=== PATIENT | female | born 1980 | race Caucasian/White ===

== ENCOUNTER 2019-10-02 16:22 | Emergency (ER) | payer OTHER ==
[~2019-10-02] VITALS: Ht 160 cm; Wt 46.7 kg
--- NOTE | 2019-10-02 16:30 | NUR ---
DR RIVERA AT BEDSIDE
--- NOTE | 2019-10-02 16:30 | NUR ---
BIBPD FOR OTB. PT HAS NO MEDICAL COMPLAINTS DAIRY BACTERIOLOGIST. HX OF DIABETES, TO ER BED 9, HOOKED TO MONITOR, WARM BLANKET PROVIDED, PATIENT AAO x 4, BREATHING EVEN AND UNLABORED. AWAITING MD GOMEZ.
[2019-10-02] MEDS ORDERED: INSULIN REGULAR, HUMAN 100 UNIT/ML 10 ML VIAL ONE (16:51)
[2019-10-02 16:57] LABS: APPEARANCE,URINE Clear (CLEAR); BILIRUBIN,URINE Negative (NEGATIVE); BLOOD, URINE Trace-lysed Ery/uL (NEGATIVE); COLOR,URINE Yellow (YELLOW); KETONES,URINE 40 (NEGATIVE); LEUKOCYTE ESTERASE ,URINE Negative (NEGATIVE); NITRITE, URINE Negative (NEGATIVE); PROTEIN,URINE Negative (NEGATIVE); UGLUCOSE >=1000 mg/dL (NEGATIVE)
[2019-10-02 17:01] LABS: BASOPHILS % (AUTO) 0.4 % (0.0-2.0); EOSINOPHILS % (AUTO) 1.9 % (0.0-6.0); HEMATOCRIT 44 % (33-45); HEMOGLOBIN 14.8 g/dL (11.5-14.8); LYMPHOCYTES # (AUTO) 1.8 /CMM (0.8-4.8); LYMPHOCYTES % (AUTO) 28.9 % (20.0-44.0); MEAN CORPUSCULAR HGB CONC 34 g/dl (31.0-36.0); MEAN CORPUSCULAR VOLUME 104 fL (82-100); MONOCYTES # (AUTO) 0.8 /CMM (0.1-1.30); NEUTROPHILS # (AUTO) 3.6 /CMM (1.8-8.9); NEUTROPHILS % (AUTO) 56.8 % (43.0-81.0); PLATELET COUNT (AUTO) 262 /CMM (150-450); RED BLOOD CELL COUNT(AUTO) 4.25 MIL/uL (4.0-5.2); WHITE BLOOD COUNT (AUTO) 6.4 K/uL (4.3-11.0)
[2019-10-02] MEDS: IV NS 0.9% 1,000 ML IV ONE (17:02)
[2019-10-02] MEDS: INSULIN REGULAR, HUMAN 100 UNIT/ML 10 ML VIAL SQ ONE (17:03)
[2019-10-02 17:06] LABS: BACTERIA,URINE Few /HPF (None Seen); SQUAMOUS EPITHELIAL CELL,UR Few /HPF (None Seen); WBC,URINE NONE SEEN /HPF (0-3)
[2019-10-02 17:12] LABS: CALCIUM, SERUM 8.9 mg/dL (8.5-10.1); CARBON DIOXIDE 28 mmol/L (21-32); CHLORIDE 95 mmol/L (98-107); CREATININE 0.6 mg/dL (0.6-1.3); POTASSIUM 3.9 mmol/L (3.5-5.1); SODIUM SERUM 131 mmol/L (136-145); UREA NITROGEN, BLOOD 13 mg/dL (7-18)
[2019-10-02 17:13] LABS: GLUCOSE 371 mg/dL (74-106)
--- NOTE | 2019-10-02 18:42 | NUR ---
CHAPERONED DR RIVERA FOR CHECKING PATIENT'S VAGINAL DISCHARGE
[2019-10-02] MEDS ORDERED: CEFTRIAXONE 500 MG VIAL ONE (18:49)
[2019-10-02] MEDS ORDERED: LIDOCAINE /MPF 1% VIAL 5 ML VIAL ONE (18:50)
[2019-10-02] MEDS ORDERED: AZITHROMYCIN 250 MG TABLET ONE (18:50)
[2019-10-02] MEDS ORDERED: FLUCONAZOLE (100 MG) 100 MG TABLET ONE (18:50)
[2019-10-02] MEDS: FLUCONAZOLE (100 MG) 100 MG TABLET PO ONE (19:00)
[2019-10-02] MEDS: CEFTRIAXONE 500 MG VIAL IM ONE (19:00)
[2019-10-02] MEDS: AZITHROMYCIN 250 MG TABLET PO ONE (19:00)
--- NOTE | 2019-10-02 19:27 | NUR ---
REPORT GIVEN TO LULY ENRIQUEZ FOR MINA
--- NOTE | 2019-10-02 19:30 | NUR ---
Patient discharged to PD in stable condition. Written and verbal after care instructions given. Patient verbalizes understanding of instruction.IV removed. Catheter intact and site benign. Pressure and 4x4 applied to site. No bleeding noted.
[2019-10-02 19:32] VITALS: BP 124/84
== END 2019-10-02 19:32 | disposition home or self-care (01) ==
LOC: ER 16:25
DX: E11.65 Type 2 diabetes mellitus with hyperglycemia (principal); B37.3 Candidiasis of vulva and vagina; Z72.51 High risk heterosexual behavior; Z02.89 Encounter for other administrative examinations; Z79.4 Long term (current) use of insulin
CPT/HCPCS: 36415; 80048; 81001; 82010; 82962 ×2; 85025; 87491; 87591; 96360; 96372 ×2; 99284; J0696; J1815; J3490; J7030; 81000-TC

== ENCOUNTER 2020-06-06 12:13 | Emergency (ER) | payer OTHER ==
[~2020-06-06] VITALS: Ht 154.9 cm; Wt 54.9 kg
[2020-06-06] MEDS ORDERED: LORAZEPAM INJ 2 MG/ML VIAL ONE (12:27)
[2020-06-06] MEDS ORDERED: IV NS 0.9% 1,000 ML BAG IV ONE (12:30)
[2020-06-06] MEDS ORDERED: LORAZEPAM INJ 2 MG/ML VIAL IV ONE (12:30)
[2020-06-06 12:41] LABS: BASOPHILS # (AUTO) 0.1 /CMM (0.0-0.2); EOSINOPHILS % (AUTO) 0.4 % (0.0-6.0); HEMATOCRIT 42 % (33-45); HEMOGLOBIN 13.8 g/dL (11.5-14.8); LYMPHOCYTES # (AUTO) 2.2 /CMM (0.8-4.8); LYMPHOCYTES % (AUTO) 41.2 % (20.0-44.0); MEAN CORPUSCULAR HGB CONC 33 g/dl (31.0-36.0); MEAN CORPUSCULAR VOLUME 102 fL (82-100); MONOCYTES # (AUTO) 0.1 /CMM (0.1-1.30); MONOCYTES % (AUTO) 2.2 % (2.0-12.0); NEUTROPHILS # (AUTO) 2.9 /CMM (1.8-8.9); NEUTROPHILS % (AUTO) 55.2 % (43.0-81.0); PLATELET COUNT (AUTO) 259 /CMM (150-450); RED BLOOD CELL COUNT(AUTO) 4.16 MIL/uL (4.0-5.2); WHITE BLOOD COUNT (AUTO) 5.3 K/uL (4.3-11.0)
--- NOTE | 2020-06-06 12:41 | NUR ---
ANA FROM HOME TO ER BED 12. AWAKE, ALERT BUT INTOXICATED - SMELLS OF ALCOHOL. NOT IN RESP DISTRESS, BRETHNG EVEN AND UNLABORED. BROUGHT IN FOR ALCOHOL WITHDRAWAL. PER PT SHE HAS BEEN HAVING BAD WITHDRAWAL AND HAD TO HAVE SHOT TO HELP WITH THE SHAKE. PT IS NOTED TACHYCARDIC. MD WAS AT THE BEDSIDE FOR EVAL. ORDERS RECEIVED, NOTED AND CARRIED OUT. IV LINE ESTABLISHED ON L AC 20G, BLOOD DRAWN AND GIVEN TO END USER CONSULTANT AT BEDSIDE. PT IS ON MONITOR.DENIES SI NOR HI
[2020-06-06 12:47] LABS: CALCIUM, SERUM 8.4 mg/dL (8.5-10.1); CREATININE 0.6 mg/dL (0.6-1.3); POTASSIUM 3.8 mmol/L (3.5-5.1)
[2020-06-06 12:53] LABS: ALBUMIN 4.5 g/dL (3.4-5.0); BILIRUBIN,DIRECT 0.2 mg/dL (0.0-0.2); BILIRUBIN,TOTAL 0.5 mg/dL (0.2-1.0); TOTAL PROTEIN, SERUM 8.9 g/dL (6.4-8.2)
--- NOTE | 2020-06-06 14:16 | NUR ---
CALLED SHRUTHI MCDERMOTT, PT PARTNER, SEVERAL TIMES FOR REDUCER BUT PHONE IS BUSY AND NO VOICEMAIL.
[2020-06-06] MEDS ORDERED: MAG HYDROX/AL HYDROX/SIMETH 30 ML UDC PO ONE (14:30)
[2020-06-06] MEDS ORDERED: MAG HYDROX/AL HYDROX/SIMETH 30 ML UDC ONE (14:40)
--- NOTE | 2020-06-06 14:42 | NUR ---
PT WILL BE PICKED UP BY HER NIECEFREDERICK.
--- NOTE | 2020-06-06 15:45 | NUR ---
PT PICKED UP BY HER NIECE, KRISTY. PT AMBULAUTED ON STEADY GAIT TO THE CAR
[2020-06-06 15:51] VITALS: BP 112/69
--- NOTE | 2020-06-06 15:51 | NUR ---
Patient discharged to home in stable condition. Written and verbal after care instructions given. Patient verbalizes understanding of instruction.IV removed. Catheter intact and site benign. Pressure and 4x4 applied to site. No bleeding noted. Pt ambulatory with a steady gait
== END 2020-06-06 15:52 | disposition home or self-care (01) ==
LOC: ER 12:18
DX: F10.129 Alcohol abuse with intoxication, unspecified (principal); E11.9 Type 2 diabetes mellitus without complications; R00.0 Tachycardia, unspecified; Y90.9 Presence of alcohol in blood, level not specified
CPT/HCPCS: 36415; 80048; 80076; 83690; 85025; 93005; 96361; 96374; 99284; J2060; J7030

== ENCOUNTER 2020-08-02 17:45 | Emergency (ER) | payer OTHER ==
[~2020-08-02] VITALS: Ht 160 cm; Wt 45.4 kg
--- NOTE | 2020-08-02 18:00 | NUR ---
BIBRA39 FROM [facility] HOME, FOR ETOH X 6 DAYS STRAIGHT, -N/V/D. DENIES PAIN. PATIENT IS ALERT AND ORIENTED X3 WITH EPISODES OF FORGETFULLNESS. IN ROOM AIR AND DENIES SOB. RESPIRATION REGULAR AND UNLABORED. WARM BLANKET PROVIDED FOR COMFORT. WILL CONTINUE TO MONITOR THE PATIENT.
[2020-08-02] MEDS ORDERED: IV NS 0.9% 1,000 ML IV ONE (19:00)
[2020-08-02] MEDS ORDERED: BLOOD SUGAR DIAGNOSTIC 1 EACH STRIP IN ONE (19:00)
[2020-08-02 19:20] LABS: BASOPHILS # (AUTO) 0.1 /CMM (0.0-0.2); BASOPHILS % (AUTO) 1.2 % (0.0-2.0); EOSINOPHILS % (AUTO) 0.9 % (0.0-6.0); HEMATOCRIT 35 % (33-45); HEMOGLOBIN 11.3 g/dL (11.5-14.8); LYMPHOCYTES # (AUTO) 1.6 /CMM (0.8-4.8); MEAN CORPUSCULAR HGB CONC 33 g/dl (31.0-36.0); MEAN CORPUSCULAR VOLUME 97 fL (82-100); MONOCYTES # (AUTO) 0.3 /CMM (0.1-1.30); MONOCYTES % (AUTO) 6.7 % (2.0-12.0); NEUTROPHILS # (AUTO) 3.2 /CMM (1.8-8.9); NEUTROPHILS % (AUTO) 61.2 % (43.0-81.0); PLATELET COUNT (AUTO) 280 /CMM (150-450); RED BLOOD CELL COUNT(AUTO) 3.56 MIL/uL (4.0-5.2); WHITE BLOOD COUNT (AUTO) 5.2 K/uL (4.3-11.0)
[2020-08-02 19:27] LABS: CALCIUM, SERUM 7.6 mg/dL (8.5-10.1); CARBON DIOXIDE 26 mmol/L (21-32); CHLORIDE 102 mmol/L (98-107); CREATININE 0.4 mg/dL (0.6-1.3); GLUCOSE 230 mg/dL (74-106); POTASSIUM 3.4 mmol/L (3.5-5.1); SODIUM SERUM 142 mmol/L (136-145); UREA NITROGEN, BLOOD 10 mg/dL (7-18)
[2020-08-02 19:34] LABS: ALANINE AMINOTRANSFERASE 44 U/L (12-78); ALBUMIN 3.6 g/dL (3.4-5.0); ALCOHOL, BLOOD 335 mg/dL (0-0); ALKALINE PHOSPHATASE 81 U/L (46-116); ASPARTATE AMINOTRANSFERASE 38 U/L (15-37); BILIRUBIN,DIRECT 0.2 mg/dL (0.0-0.2); BILIRUBIN,TOTAL 0.3 mg/dL (0.2-1.0); TOTAL PROTEIN, SERUM 6.9 g/dL (6.4-8.2)
[2020-08-02 19:38] LABS: MAGNESIUM 1.4 mg/dL (1.8-2.4)
[2020-08-02 19:39] LABS: ACETAMINOPHEN < 2 ug/ml (10-30)
[2020-08-02] MEDS ORDERED: LORAZEPAM 1 MG TABLET ONE (19:47)
--- NOTE | 2020-08-02 19:53 | NUR ---
PT IN BED RESTING COMFORTABLY. VSS.
[2020-08-02] MEDS ORDERED: LORAZEPAM 1 MG TABLET PO ONE (20:00)
[2020-08-02] MEDS ORDERED: KETOROLAC TROMETHAMINE 15 MG/ML VIAL ONE (20:12)
[2020-08-02] MEDS ORDERED: CHLO25CA22 PO ×2 (20:17→21:09)
[2020-08-02] MEDS ORDERED: Magnesium 1GM/D5W 100ML PREMIX 200 ML IV ONE (20:28)
[2020-08-02] MEDS ORDERED: POTASSIUM CHLORIDE 20 MEQ TAB.PRT.SR PO ONE ×2 (20:28→20:30)
[2020-08-02] MEDS: Magnesium 1GM/D5W 100ML PREMIX 100 ML IV SCH ×2 (20:40→22:00)
--- NOTE | 2020-08-03 03:00 | NUR ---
PT ASLEEP, VSS.
--- NOTE | 2020-08-03 04:21 | NUR ---
IV removed. Catheter intact and site benign. Pressure and 4x4 applied to site. No bleeding noted.
--- NOTE | 2020-08-03 05:53 | NUR ---
Patient discharged to home in stable condition. Written and verbal after care instructions given. Patient verbalizes understanding of instruction. Pt AAOX4. Ambulatory with steady gait. VSS. Called Boyfriend to be picked up.
[2020-08-03 05:54] VITALS: BP 126/83
== END 2020-08-03 05:57 | disposition home or self-care (01) ==
LOC: ER 17:45
DX: F10.129 Alcohol abuse with intoxication, unspecified (principal); E87.6 Hypokalemia; E83.42 Hypomagnesemia; E11.65 Type 2 diabetes mellitus with hyperglycemia; D64.9 Anemia, unspecified; E86.0 Dehydration; R00.0 Tachycardia, unspecified; Y90.8 Blood alcohol level of 240 mg/100 ml or more; Z79.899 Other long term (current) drug therapy
CPT/HCPCS: 36415; 80048; 80076; 80299; 80320; 82962; 83735; 84702; 85025; 93005; 96361; 96365; 96366; 99284; J1885; J3475; J7030; G0480

== ENCOUNTER 2020-08-27 03:46 | Inpatient (IN) | payer OTHER ==
[~2020-08-27] VITALS: Ht 160 cm; Wt 42.6 kg
[~2020-08-27 03:46] MED LIST: CHLO25CA22 PO
[2020-08-27] MEDS ORDERED: LORAZEPAM INJ 2 MG/ML VIAL IV ONE (04:00)
[2020-08-27] MEDS ORDERED: ONDANSETRON HCL/PF 4 MG/2 ML VIAL IV ONE (04:00)
[2020-08-27] MEDS ORDERED: ONDANSETRON HCL/PF 4 MG/2 ML VIAL ONE ×3 (04:03→18:27)
[2020-08-27] MEDS ORDERED: LORAZEPAM INJ 2 MG/ML VIAL ONE ×2 (04:03→09:48)
--- NOTE | 2020-08-27 04:12 | NUR ---
BIBRA 88 FOR ETOH. + NAUSEA TO ER BED 3
[2020-08-27] MEDS ORDERED: MAG HYDROX/AL HYDROX/SIMETH 30 ML UDC ONE (04:51)
[2020-08-27] MEDS ORDERED: LIDOCAINE VISCOUS 2% UD 15 ML UDC ONE (04:51)
[2020-08-27 05:00] LABS: BASOPHILS # (AUTO) 0.1 /CMM (0.0-0.2); BASOPHILS % (AUTO) 0.4 % (0.0-2.0); EOSINOPHILS % (AUTO) 0.2 % (0.0-6.0); HEMATOCRIT 40 % (33-45); LYMPHOCYTES % (AUTO) 6.4 % (20.0-44.0); MEAN CORPUSCULAR HGB CONC 30 g/dl (31.0-36.0); MEAN CORPUSCULAR VOLUME 106 fL (82-100); MONOCYTES # (AUTO) 0.3 /CMM (0.1-1.30); MONOCYTES % (AUTO) 2.2 % (2.0-12.0); NEUTROPHILS # (AUTO) 14.2 /CMM (1.8-8.9); NEUTROPHILS % (AUTO) 90.8 % (43.0-81.0); PLATELET COUNT (AUTO) 376 /CMM (150-450); RED BLOOD CELL COUNT(AUTO) 3.77 MIL/uL (4.0-5.2); WHITE BLOOD COUNT (AUTO) 15.6 K/uL (4.3-11.0)
[2020-08-27] MEDS ORDERED: LIDOCAINE VISCOUS 2% UD 15 ML UDC MM ONE (05:00)
[2020-08-27] MEDS ORDERED: MAG HYDROX/AL HYDROX/SIMETH 30 ML UDC PO ONE (05:00)
[2020-08-27 05:15] LABS: ALBUMIN 3.5 g/dL (3.4-5.0); BILIRUBIN,TOTAL 0.8 mg/dL (0.2-1.0); CALCIUM, SERUM 7.8 mg/dL (8.5-10.1); POTASSIUM 3.8 mmol/L (3.5-5.1)
[2020-08-27 05:20] LABS: BAND % (MANUAL) 1 % (0.0-5.0); LYMPHOCYTES % (MANUAL) 7 % (16-48); MONOCYTES % (MANUAL) 2 % (0-11.0); NEUTROPHILS % (MANUAL) 90 (42-76)
--- NOTE | 2020-08-27 05:51 | NUR ---
covid swab collected and sent out
[2020-08-27 06:22] LABS: ABG BASE EXCESS -21.5 mmol/L; ABG OXYGEN SATURATION 97.7 % (92.0-98.5); ABG PCO2 14.7 mmHg (35.0-45.0); ABG PH 7.153 (7.350-7.450); ABG PO2 150.5 mmHg (75.0-100.0); COHb 0.2 % (0.5-1.5); MetHb 0.6 % (0.0-1.5); O2Hb 96.9 % (94.0-97.0); VENT MODE, BG RA
[2020-08-27] MEDS ORDERED: IV NS 0.9% 1,000 ML BAG IV ONE (06:30)
[2020-08-27] MEDS ORDERED: PIPERACILLIN /TAZOBACTAM 3.375 G in IV D5W 50 ML IV ONE (07:00)
[2020-08-27] MEDS ORDERED: FAMOTIDINE/PF INJ 20 MG/2 ML VIAL IV ONE ×2 (07:02→07:30)
[2020-08-27] MEDS ORDERED: PIPERACILLIN /TAZOBACTAM 3.375 G VIAL IV ONE (07:02)
[2020-08-27 07:05] LABS: ALCOHOL, BLOOD 299 mg/dL (0-0); MAGNESIUM 1.8 mg/dL (1.8-2.4)
[2020-08-27] MEDS ORDERED: INSU100V3 SUBCUT (07:35)
[2020-08-27] MEDS ORDERED: METF-442 MT (07:35)
[2020-08-27] MEDS ORDERED: GLIP5TAB13 PO (07:35)
[2020-08-27] MEDS ORDERED: OMEP40CA13 PO (07:35)
[2020-08-27] MEDS ORDERED: IV NS 0.9% 250 ML IV ONE (07:38)
[2020-08-27] MEDS ORDERED: IOHEXOL-300 100 ML VIAL IV ONE (07:38)
[2020-08-27] MEDS ORDERED: CT SWABBABLE VALVE TRANS SET 1 EA INFUS.SET MC ONE (07:39)
--- NOTE | 2020-08-27 07:55 | NUR ---
wheeled patient to ct
--- NOTE | 2020-08-27 08:01 | NUR ---
Patient came back from ct
--- NOTE | 2020-08-27 08:33 | NUR ---
urine collected and sent to lab
[2020-08-27] MEDS ORDERED: MAGNESIUM HYDROXIDE 30 ML UDC PO PRN (09:00)
[2020-08-27] MEDS ORDERED: Z GUARD REMEDY 2 OZ OINT TP PRN (09:00)
[2020-08-27] MEDS ORDERED: IV NS 0.9% 1,000 ML IV PRN (09:00)
[2020-08-27] MEDS ORDERED: HYDROCODONE/APAP 5/325MG TABLET PO PRN (09:00)
[2020-08-27] MEDS ORDERED: MAG HYDROX/AL HYDROX/SIMETH 30 ML UDC PO PRN (09:00)
[2020-08-27] MEDS ORDERED: ACETAMINOPHEN 325 MG TABLET PO PRN (09:00)
[2020-08-27 09:31] LABS: BILIRUBIN,URINE Negative (NEGATIVE); COLOR,URINE YELLOW (YELLOW); LEUKOCYTE ESTERASE ,URINE Negative (NEGATIVE); NITRITE, URINE Negative (NEGATIVE); PH,URINE 7.5 (5.0-8.0); PROTEIN,URINE 100 mg/dl (NEGATIVE); UGLUCOSE Negative (NEGATIVE); UROBILINOGEN,URINE 0.2 EU/dL (0.2)
[2020-08-27 09:46] LABS: BILIRUBIN,DIRECT 0.9 mg/dL (0.0-0.2)
[2020-08-27] MEDS ORDERED: PANTOPRAZOLE 40 MG VIAL ONE (09:47)
[2020-08-27 09:52] LABS: WBC,URINE 0-2 /HPF (0-3)
[2020-08-27 09:53] LABS: BACTERIA,URINE Moderate /HPF (None Seen); SQUAMOUS EPITHELIAL CELL,UR Few /HPF (None Seen)
[2020-08-27 09:54] LABS: TRIPLE PHOSPHATE CRYSTAL,UR Few /HPF (None Seen); URINE AMORPHOUS PHOSPHATES Moderate /HPF (None Seen)
[2020-08-27] MEDS: ONDANSETRON HCL/PF 4 MG/2 ML VIAL IVP PRN ×2 (10:00→20:19)
[2020-08-27] MEDS: LORAZEPAM INJ 2 MG/ML VIAL IVP PRN (10:00)
[2020-08-27] MEDS: PANTOPRAZOLE 40 MG VIAL IV SCH ×2 (10:00→21:28)
--- NOTE | 2020-08-27 10:30 | NUR ---
Insulin drip started @ 4 units/hr blood glucose 230
[2020-08-27] MEDS: INSULIN REGULAR, HUMAN 100 UNIT in IV NS 0.9% 99 ML IV PRN ×2 (10:35→22:23)
[2020-08-27] MEDS ORDERED: ENOXAPARIN SODIUM 40 MG/0.4 ML DISP.SYRIN SQ ONE (10:37)
[2020-08-27] MEDS: ENOXAPARIN SODIUM 40 MG/0.4 ML DISP.SYRIN SQ SCH (10:40)
--- NOTE | 2020-08-27 11:30 | NUR ---
Insulin drip started @ 1 unit/hr blood glucose 216 Addendum: 08/27/20 at 1517 by JACEK Insulin drip @ 1 unit/hr blood glucose 216
--- NOTE | 2020-08-27 11:48 | NUR ---
Non Licensed Nuclear Equipment Operator Consult: Non Licensed Nuclear Equipment Operator consult requested for ETOH use. Patient is a 39-year-old, female. SW met the patient at her bedside on the emergency department. Patient is alert and oriented x4. Patient repeatedly stated that she was dizzy and not feeling well. Per chart, patient was brought in by ambulance on 08/27/20 for ETOH use and nausea. Patient stated that she currently lives with roommates at [address] [place] [address]. SW asked patient about her history of substance use and patient stated that she has a history of alcohol abuse and was at a rehabilitation center in [place] about a month ago. Patient stated that she plans to contact this facility independently to return for treatment. SW asked patient about her frequency of alcohol use and patient stated that she drinks a shot of alcohol every three hours. Patient stated that her alcohol use helps alleviate her Anxiety symptoms. SW asked patient about her history of mental illness and patient stated that she has a history of Anxiety only and was previously taking Lexapro but ran out of her medication a week ago. SW will collaborate with ED physician regarding the prescription. SW asked patient if she is independent with her ADLs and patient stated that she is. Patient reported that she currently has no source of income but is supported by her roommates and her ex-boyfriend. Patient is ambulatory. SW asked patient if she was experiencing any suicidal or homicidal ideation and patient denied. SW offered patient addiction resources for alcohol use and patient accepted the resources. Patient stated that she will independently contact the rehabilitation center to return for treatment. SW discussed discharge plans with the patient and patient stated that she will return to her prior living arrangement with her roommates. Patient stated that her roommate, Aman [phone] will pick her up at the time of discharge. PLAN: Patient plans to return to her prior living arrangement at the time of discharge. No further SS intervention, however, SS will remain available as needed. Alcohol use resources provided included: [facility] Substance Abuse Self-Helpline ([facility]) ; [facility] [address] [facility] [place] [address] ; [address] [address] ; [place] [address] [address] [facility] [address] ; [facility] [address] [facility] [address] ; [facility] [address] [facility] [address] ; [facility]; [facility] [place]; [facility]; Alcoholics Anonymous -[facility]
--- NOTE | 2020-08-27 11:52 | NUR ---
Artificial Snow Making Machine Operator note: SRIRAM collaborated with Fei LUCAS to provide the patient with a refill prescription of Lexapro. Per patient, she ran out of Lexapro a week ago. Fei OIL RECOVERY UNIT OPERATOR ordered prescription for the patient.
[2020-08-27] MEDS ORDERED: ESCITALOPRAM OXALATE (10 MG) 10 MG TABLET ONE (12:09)
[2020-08-27] MEDS ORDERED: METOCLOPRAMIDE HCL 10 MG/2 ML VIAL ONE (12:09)
[2020-08-27] MEDS: PIPERACILLIN /TAZOBACTAM 3.375 G in IV D5W 100 ML IV SCH ×2 (12:15→21:29)
[2020-08-27] MEDS: ESCITALOPRAM OXALATE (10 MG) 10 MG TABLET PO SCH (12:15)
[2020-08-27] MEDS: METOCLOPRAMIDE HCL 10 MG/2 ML VIAL IV SCH ×2 (12:15→21:28)
--- NOTE | 2020-08-27 12:30 | NUR ---
Insulin drip started @ 0.5 units/hr blood glucose 193 Addendum: 08/27/20 at 1518 by JACEK Insulin drip @ 0.5 unit/hr blood glucose 193
[2020-08-27] MEDS ORDERED: PIPERACILLIN /TAZOBACTAM 3.375 G in IV D5W 50 ML IV SCH (13:00)
--- NOTE | 2020-08-27 13:30 | NUR ---
Insulin drip started @ 1 unit/hr blood glucose 207 Addendum: 08/27/20 at 1518 by JACEK Insulin drip @ 1 unit/hr blood glucose 207
[2020-08-27] MEDS ORDERED: Thiamine 100 MG in IV D5W 50 ML IV SCH (14:00)
[2020-08-27 14:11] LABS: CALCIUM, SERUM 6.8 mg/dL (8.5-10.1); CREATININE 0.8 mg/dL (0.6-1.3); POTASSIUM 4.2 mmol/L (3.5-5.1)
[2020-08-27] MEDS ORDERED: Sodium Bicarbonate 100 MEQ in IV 1/2NS 1000 ML 1,000 ML IV PRN (15:00)
--- NOTE | 2020-08-27 16:30 | NUR ---
Taylor alvarenga in ED - 08/27/20 at 1704 by JACEK FEELING ANXIOUS/SCARED SINCE YESTERDAY AFTER TAKING CANNABIS INDICA TO
--- NOTE | 2020-08-27 16:30 | NUR ---
Insulin drip @ 0.5 unit/hr blood glucose 187
[2020-08-27] MEDS: GLUCERNA SHAKE 237 ML CAN PO SCH (17:00)
[2020-08-27 17:28] LABS: CALCIUM, SERUM 6.9 mg/dL (8.5-10.1); CREATININE 0.9 mg/dL (0.6-1.3)
--- NOTE | 2020-08-27 18:57 | NUR ---
wheeled patient via gurney accompanied by RN and emt in no distress. RN assigned at bedside to assume care.
--- NOTE | 2020-08-27 19:00 | NUR ---
DIRECTOR OF ATHLETICS NOTES RECEIVED PATIENT FROM ER VIA HAZEL, A/O X4, ON RA SATING 99%, VSS, IV ACCESS ON LAC#18 AND RAC #18 WITH NA BICARB RUNNING @100ML/HR. DR. HUITRON NOTIFIED WITH ORDER TO USE ALGORITHM #1 FOR INSULIN DRIP. SKIN IS INTACT. SAFETY MEASURES INITIATED, BED PLACED IN LOWEST LOCKED POSITION WITH SIDE RAILS UP X2, CALL LIGHT WITHIN REACH, ENDORSE TO MINA GOODWIN FOR MINA AND ADMISSION.
--- NOTE | 2020-08-27 19:30 | NUR ---
RN NOTE RECEIVED PATIENT IN BED, AO X 4, ON SEMI SEN'S, IN NO S/SX OF ACUTE DISTRESS AT THIS TIME. NO SOB NOTED. PATIENT'S BREATHING IS EVEN AND UNLABORED, SATURATION 98% ON ROOM AIR, ST ON THE MONITOR, HR IS 107. NOTED IV SITE AT LAC 18G, AND RAC 18G, ALL HUBS PATENT AND FLUSHING WELL, NO S/S OF INFECTION OR INFILTRATION, WITH SODIUM BICARB INFUSING AT 100 ML/HR, AND INSULIN DRIP AT DOSERATE OF 0.5 UNITS/HR. NOTED WEAKNESS AT BUE AND BLE. SAFETY MEASURES IMPLEMENTED. PATIENT BED ALARM IS ON. HEAD OF BED ELEVATED. BED IS LOCKED, IN LOWEST POSITION AND SIDE RAILS UP. CALL LIGHT WITHIN REACH OF THE PATIENT. WILL CONTINUE TO MONITOR AND REASSESS FOR ANY CHANGES.
[2020-08-27 19:39] VITALS: BP 97/68
[2020-08-27 20:00] VITALS: BP 126/98
[2020-08-27 21:00] VITALS: BP 99/69
[2020-08-27] MEDS ORDERED: TEMAZEPAM 15 MG CAPSULE PO PRN (21:00)
[2020-08-27 22:00] VITALS: BP 113/48
[2020-08-27 22:11] LABS: CREATININE 0.9 mg/dL (0.6-1.3)
[2020-08-27 23:00] VITALS: BP 99/60
[2020-08-27 23:35] LABS: POTASSIUM 3.4 mmol/L (3.5-5.1)
--- NOTE | 2020-08-27 23:35 | NUR ---
RN NOTE TELEPHONE CALL FROM LAB, SPOKE WITH STEPHANIE, RELAYED CRITICAL LAB VALUE OF [address] MAYORGA NOTIFIED, ORDER RECEIVED TO DO STAT ABG. RT NOTIFIED. MAIL HANDLERS SUPERVISOR AWARE
[2020-08-28] VITALS (26 sets, daily range): BP systolic 84–131; BP diastolic 56–81
--- NOTE | 2020-08-28 01:00 | NUR ---
RN NOTE ABG RESULTED, PCOD 15.8, DR MAYORGA NOTIFIED, ORDERS RECEIVED TO CHANGE IV FLUID TO NA BICARB 100 MEQ IN D5W 1000 ML. SLATE SPLITTER AWARE.
[2020-08-28 01:21] LABS: ABG BASE EXCESS -13.5 mmol/L; ABG OXYGEN SATURATION 97.4 % (92.0-98.5); ABG PCO2 15.8 mmHg (35.0-45.0); ABG PH 7.389 (7.350-7.450); ABG PO2 105.5 mmHg (75.0-100.0); AaDO2 25.3 mmHg; COHb 0.3 % (0.5-1.5); MetHb 0.2 % (0.0-1.5); O2Hb 96.9 % (94.0-97.0); SITE, ABG Right Radial; VENT MODE, BG ra
[2020-08-28] MEDS: LORAZEPAM INJ 2 MG/ML VIAL IVP PRN ×3 (01:34→22:28)
[2020-08-28 01:40] LABS: CALCIUM, SERUM 7.2 mg/dL (8.5-10.1); POTASSIUM 3.3 mmol/L (3.5-5.1)
[2020-08-28] MEDS ORDERED: SODIUM BICARBONATE SYR 50 MEQ/50 ML DISP.SYRIN ONE (02:26)
[2020-08-28] MEDS: Sodium Bicarbonate 100 MEQ in IV D5W 1,000 ML IV SCH ×2 (02:36→13:05)
[2020-08-28] MEDS: METOCLOPRAMIDE HCL 10 MG/2 ML VIAL IV SCH ×3 (04:10→20:10)
[2020-08-28] MEDS: PIPERACILLIN /TAZOBACTAM 3.375 G in IV D5W 100 ML IV SCH ×3 (04:11→21:00)
[2020-08-28 04:31] LABS: BASOPHILS % (AUTO) 0.1 % (0.0-2.0); HEMATOCRIT 28 % (33-45); HEMOGLOBIN 8.9 g/dL (11.5-14.8); LYMPHOCYTES # (AUTO) 0.5 /CMM (0.8-4.8); LYMPHOCYTES % (AUTO) 4.6 % (20.0-44.0); MEAN CORPUSCULAR HGB CONC 32 g/dl (31.0-36.0); MEAN CORPUSCULAR VOLUME 99 fL (82-100); MONOCYTES # (AUTO) 0.3 /CMM (0.1-1.30); NEUTROPHILS # (AUTO) 10.2 /CMM (1.8-8.9); NEUTROPHILS % (AUTO) 92.3 % (43.0-81.0); PLATELET COUNT (AUTO) 193 /CMM (150-450); RED BLOOD CELL COUNT(AUTO) 2.82 MIL/uL (4.0-5.2); WHITE BLOOD COUNT (AUTO) 11.1 K/uL (4.3-11.0)
[2020-08-28 04:54] LABS: THYROID STIMULATING HORMONE 4.529 uIU/mL (0.358-3.74)
[2020-08-28 05:02] LABS: ALBUMIN 2.7 g/dL (3.4-5.0); BILIRUBIN,TOTAL 0.8 mg/dL (0.2-1.0); CALCIUM, SERUM 7.2 mg/dL (8.5-10.1); MAGNESIUM 1.5 mg/dL (1.8-2.4); POTASSIUM 2.9 mmol/L (3.5-5.1); TOTAL PROTEIN, SERUM 5.6 g/dL (6.4-8.2)
--- NOTE | 2020-08-28 05:15 | NUR ---
RN NOTE NOTED AM LABS: PHOS. 1.0, MAGNESIUM 1.5, AND POTASSIUM 2.9, DR MAYORGA WAS NOTIFIED, ORDERS RECEIVED TO REPLACE PHOS. WITH K PHOS NEUTRAL TAB 500 MG, MG 2 GMS IV, AND POTASSIUM 40 MEQ IV. MAINTENANCE PIPEFITTER AWARE.
[2020-08-28] MEDS ORDERED: K PHOS NEUTRAL 250 MG TABLET PO ONE ×2 (06:00→11:00)
[2020-08-28 06:09] LABS: ABG BASE EXCESS -8.4 mmol/L; ABG OXYGEN SATURATION 97.9 % (92.0-98.5); ABG PCO2 18.2 mmHg (35.0-45.0); ABG PH 7.481 (7.350-7.450); ABG PO2 110.1 mmHg (75.0-100.0); AaDO2 17.8 mmHg; COHb 0.3 % (0.5-1.5); MetHb 0.2 % (0.0-1.5); O2Hb 97.4 % (94.0-97.0); SITE, ABG Right Radial; VENT MODE, BG RA
[2020-08-28] MEDS ORDERED: POTASSIUM CHLORIDE 10 MEQ/50 ML PREMIXED IVPB FOR PERIPHERAL LINE IV ONE (06:30)
[2020-08-28] MEDS ORDERED: Magnesium 1GM/D5W 100ML PREMIX PIGGYBACK IV ONE (06:30)
--- NOTE | 2020-08-28 07:15 | NUR ---
HEAD ANIMAL TRAINER OPENING NOTE RECEIVED REPORT FROM PM NURSE.PATIENT IN BED .ALERT,FOLLOWS COMMANDS.LETHARGIC.ON TELE MONITOR ST HR 108.ON ROOM AIR.NO SOB NO DISTRESS NOTED.IV LINES ARE INTACT AND PATENT,ON INSULIN DRIP 0.5UNIT/HR ONGOING.BED IS LOW AND IN LOCKED POSITION.CALL LIGHT IN REACH.BED ALRAM ON.SRX3.WILL CONTINUE TO MONITOR.
[2020-08-28] MEDS: POTASSIUM CL. PREMIX PERIPHER. 50 ML IV SCH ×4 (07:28→11:19)
[2020-08-28] MEDS: INSULIN REGULAR, HUMAN 100 UNIT in IV NS 0.9% 99 ML IV PRN ×2 (08:17→13:15)
[2020-08-28] MEDS: GLUCERNA SHAKE 237 ML CAN PO SCH ×3 (08:18→17:00)
[2020-08-28] MEDS: ESCITALOPRAM OXALATE (10 MG) 10 MG TABLET PO SCH (08:18)
[2020-08-28] MEDS: PANTOPRAZOLE 40 MG VIAL IV SCH ×2 (08:18→20:10)
[2020-08-28] MEDS: ENOXAPARIN SODIUM 40 MG/0.4 ML DISP.SYRIN SQ SCH (08:27)
[2020-08-28 09:48] LABS: CALCIUM, SERUM 7.2 mg/dL (8.5-10.1); CREATININE 1.1 mg/dL (0.6-1.3); POTASSIUM 3.4 mmol/L (3.5-5.1)
[2020-08-28] MEDS: THIAMINE HCL 100 MG TABLET PO SCH (11:21)
--- NOTE | 2020-08-28 12:00 | NUR ---
AUTOMOBILE MECHANIC RADIATOR NOTE SEEN BY BETTING CLERKS PAPI,UPDATED ABOUT PATIENT CONDITION WITH LABS GOT NEW ORDER TO [facility] INSULIN DRIP SLIDING SCALE DRIP RATE TO ALGORITHM #2.FOLLOWING ORDERS.
[2020-08-28] MEDS: Magnesium 1GM/D5W 100ML PREMIX 100 ML IV SCH ×3 (12:22→14:13)
--- NOTE | 2020-08-28 13:00 | NUR ---
ELEVATOR TROUBLESHOOTER NOTE PATIENT REFUSED TO EAT LUNCH.OFFEREDX3 .REFUSED .WILL CONTINUE TO MONITOR.
[2020-08-28 13:16] LABS: CALCIUM, SERUM 7.1 mg/dL (8.5-10.1); POTASSIUM 2.9 mmol/L (3.5-5.1)
[2020-08-28] MEDS ORDERED: POTASSIUM CHLORIDE 20 MEQ TAB.PRT.SR PO ONE ×2 (14:00→18:00)
[2020-08-28] MEDS ORDERED: DEXTROSE 50%-WATER 50 ML DISP.SYRIN IV PRN (14:00)
--- NOTE | 2020-08-28 14:00 | NUR ---
GINSENG FARMER NOTE RECEIVED NEW BMP RESULT.RELAYED RESULT TO ARMOR RECONNAISSANCE VEHICLE DRIVER PAPI WITH ANION GAP AND MADE AWARE ABOUT POTASSIUM LEVEL.RECEIVED NEW ORDER TO D/C INSULIN AND BICARB,START ON NS @75ML/HR.POTASSIUM 40MEQ NOW AND IN 4 HRS.ACCU CHECK WITH MODERATE SLIDING SCALE .TO GIVE 10 UNIT NPH @HS.WILL CONTINUE TO MONITOR.
[2020-08-28] MEDS: IV NS 0.9% 1,000 ML IV PRN (14:50)
[2020-08-28] MEDS: INSULIN REGULAR, HUMAN 100 UNIT/ML 3 ML VIAL SQ PRN (17:06)
[2020-08-28] MEDS: BLOOD SUGAR DIAGNOSTIC 1 EACH STRIP VI SCH ×2 (17:06→22:04)
--- NOTE | 2020-08-28 17:07 | NUR ---
LENS POLISHER NOTE INSULIN NOT ADMINISTERED BECAUSE PATIENT REFUSED TO EAT DINNER.WILL CONTINUE TO MONITOR.
[2020-08-28] MEDS: MORPHINE SULFATE INJ 2 MG/ML DISP.SYRIN IV PRN (17:58)
[2020-08-28] MEDS: ONDANSETRON HCL/PF 4 MG/2 ML VIAL IVP PRN (17:58)
--- NOTE | 2020-08-28 18:00 | NUR ---
DEPUTY BUILDING GUARD NOTE PATIENT REFUSED TO DO STRAIGHT CATH.NEED TO COLLECT URINE.SHE SAID SHE DONT FEEL TO GO NOW.NO LOWER ABDOMINAL PAIN NOTED WILL CONTINUE TO MONITOR.
--- NOTE | 2020-08-28 18:47 | NUR ---
CASINO BANKER CLOSING NOTE PATIENT IN BED .ALERT,FOLLOWS COMMANDS.LETHARGIC.ON TELE MONITOR SR.ON ROOM AIR.NO SOB NO DISTRESS NOTED.IV LINES ARE INTACT AND PATENT.S/P INSULIN DRIP ADMINISTRATION.ON ACCU CHECK.BED IS LOW AND IN LOCKED POSITION.PATIENT HAD AN EPISODE OF VOMITING.PRN ZOFRAN GIVEN,POOR PO INTAKE .ON NS@75ML/HR.CALL LIGHT IN REACH.BED ALARM ON.SRX3.WILL ENDORSE TO PM NURSE FOR MINA.
--- NOTE | 2020-08-28 19:48 | NUR ---
TRANSPORTATION AIDE NOTE RECEIVED PATIENT IN BED. ALERT,FOLLOWS COMMANDS. LETHARGIC.ON TELE MONITOR SR.ON ROOM AIR.NO SOB NO DISTRESS NOTED.IV LINES ARE PATENT, INTACT FLUSHING WELL. BED LOCKED AND IN LOWEST POSITION. PATIENT ON NS@75ML/HR. CALL LIGHT WITH IN REACH. BED ALARM ON.SRX 2 WILL CONT. TO MONITOR PT.
[2020-08-28] MEDS: INSULIN GLARGINE, 100 UNIT/ML CARTRIDGE SQ SCH (22:06)
--- NOTE | 2020-08-28 22:37 | NUR ---
RN NOTE PATIENT VOIDED 400 ML OF URINE
[2020-08-28] MEDS: *INSULIN REGULAR(HUMULIN R)HUM 100 UNIT/ML VIAL SQ PRN (23:05)
[2020-08-29] VITALS (11 sets, daily range): BP systolic 93–119; BP diastolic 61–83
[2020-08-29] MEDS: MORPHINE SULFATE INJ 2 MG/ML DISP.SYRIN IV PRN ×4 (02:53→21:55)
[2020-08-29] MEDS: IV NS 0.9% 1,000 ML IV PRN ×2 (02:54→16:52)
[2020-08-29] MEDS: ONDANSETRON HCL/PF 4 MG/2 ML VIAL IVP PRN (03:18)
[2020-08-29] MEDS: METOCLOPRAMIDE HCL 10 MG/2 ML VIAL IV SCH ×3 (04:39→21:40)
[2020-08-29 04:44] LABS: BASOPHILS % (AUTO) 0.2 % (0.0-2.0); EOSINOPHILS % (AUTO) 0.4 % (0.0-6.0); HEMATOCRIT 25 % (33-45); HEMOGLOBIN 8.3 g/dL (11.5-14.8); LYMPHOCYTES # (AUTO) 1.3 /CMM (0.8-4.8); LYMPHOCYTES % (AUTO) 18.5 % (20.0-44.0); MEAN CORPUSCULAR HGB CONC 33 g/dl (31.0-36.0); MEAN CORPUSCULAR VOLUME 99 fL (82-100); MONOCYTES # (AUTO) 0.2 /CMM (0.1-1.30); MONOCYTES % (AUTO) 2.3 % (2.0-12.0); NEUTROPHILS # (AUTO) 5.7 /CMM (1.8-8.9); NEUTROPHILS % (AUTO) 78.6 % (43.0-81.0); PLATELET COUNT (AUTO) 110 /CMM (150-450); RED BLOOD CELL COUNT(AUTO) 2.56 MIL/uL (4.0-5.2); WHITE BLOOD COUNT (AUTO) 7.2 K/uL (4.3-11.0)
[2020-08-29 04:53] LABS: CALCIUM, SERUM 7.1 mg/dL (8.5-10.1); CREATININE 0.8 mg/dL (0.6-1.3); POTASSIUM 2.9 mmol/L (3.5-5.1)
[2020-08-29] MEDS: LORAZEPAM INJ 2 MG/ML VIAL IVP PRN ×2 (04:55→18:30)
[2020-08-29] MEDS: PIPERACILLIN /TAZOBACTAM 3.375 G in IV D5W 100 ML IV SCH (05:00)
[2020-08-29] MEDS ORDERED: POTASSIUM CHLORIDE 20 MEQ TAB.PRT.SR PO ONE (05:30)
[2020-08-29] MEDS: POTASSIUM CL. PREMIX PERIPHER. 50 ML IV SCH ×2 (05:52→06:50)
--- NOTE | 2020-08-29 05:55 | NUR ---
OWNER/OPERATOR NOTE REPORT GIVEN TO BUBBA RN FOR CONT. OF CARE.
--- NOTE | 2020-08-29 07:32 | NUR ---
RECEIVED PATIENT IN BED. ALERT,FOLLOWS COMMANDS. LETHARGIC.ON TELE MONITOR SR.ON ROOM AIR.NO SOB NO DISTRESS NOTED.IV LINES ARE PATENT, INTACT FLUSHING WELL. BED LOCKED AND IN LOWEST POSITION. PATIENT ON NS@75ML/HR. CALL LIGHT WITH IN REACH. BED ALARM ON.SIDE RAILS UP X 2 WILL CONT. TO MONITOR PT.
[2020-08-29] MEDS: INSULIN REGULAR, HUMAN 100 UNIT/ML 3 ML VIAL SQ PRN ×3 (07:45→16:51)
[2020-08-29] MEDS: BLOOD SUGAR DIAGNOSTIC 1 EACH STRIP VI SCH ×4 (07:51→21:49)
[2020-08-29] MEDS: GLUCERNA SHAKE 237 ML CAN PO SCH ×4 (08:00→17:00)
[2020-08-29] MEDS: ESCITALOPRAM OXALATE (10 MG) 10 MG TABLET PO SCH (08:32)
[2020-08-29] MEDS: THIAMINE HCL 100 MG TABLET PO SCH (08:32)
[2020-08-29] MEDS: PANTOPRAZOLE 40 MG VIAL IV SCH ×2 (08:32→21:40)
[2020-08-29] MEDS: ENOXAPARIN SODIUM 40 MG/0.4 ML DISP.SYRIN SQ SCH (08:33)
--- NOTE | 2020-08-29 13:58 | NUR ---
GLUCERNA NON ADMIN DUE TO PATIENT IS VERY SLEEPY, I KEEP ON WAKING HER UP TO EAT BUT PT IS SAYING SHE WILL EAT LATER AND NOT HUNGRY YET, WILL CONT TO MONITOR THE PT
--- NOTE | 2020-08-29 18:45 | NUR ---
PATIENT IN BED .ALERT,FOLLOWS COMMANDS.MORE AWAKE NOW.ON TELE MONITOR SR.ON ROOM AIR.NO SOB NO DISTRESS NOTED.IV LINES ARE INTACT AND PATENT.BED IS LOW AND IN LOCKED POSITION PRN MEDS GIVEN PER PT REQUEST .ON NS@75ML/HR.CALL LIGHT IN REACH.BED ALARM ON.SIDE RAILS UP X2 .WILL ENDORSE TO NOC NURSE FOR MINA.
[2020-08-29 19:21] LABS: CALCIUM, SERUM 7.5 mg/dL (8.5-10.1); CREATININE 0.6 mg/dL (0.6-1.3); POTASSIUM 3.7 mmol/L (3.5-5.1)
[2020-08-29] MEDS: *INSULIN REGULAR(HUMULIN R)HUM 100 UNIT/ML VIAL SQ PRN (21:52)
[2020-08-29] MEDS: INSULIN GLARGINE, 100 UNIT/ML CARTRIDGE SQ SCH (21:54)
[2020-08-30] VITALS: BP 94/65
[2020-08-30 04:00] VITALS: BP 96/60
[2020-08-30] MEDS: METOCLOPRAMIDE HCL 10 MG/2 ML VIAL IV SCH ×2 (04:10→13:49)
[2020-08-30] MEDS: LORAZEPAM INJ 2 MG/ML VIAL IVP PRN ×2 (04:11→10:07)
[2020-08-30 07:13] LABS: BASOPHILS % (AUTO) 0.6 % (0.0-2.0); EOSINOPHILS % (AUTO) 2.1 % (0.0-6.0); HEMATOCRIT 28 % (33-45); HEMOGLOBIN 9.1 g/dL (11.5-14.8); LYMPHOCYTES % (AUTO) 29.9 % (20.0-44.0); MEAN CORPUSCULAR HGB CONC 32 g/dl (31.0-36.0); MEAN CORPUSCULAR VOLUME 98 fL (82-100); MONOCYTES # (AUTO) 0.1 /CMM (0.1-1.30); NEUTROPHILS # (AUTO) 2.2 /CMM (1.8-8.9); NEUTROPHILS % (AUTO) 64.4 % (43.0-81.0); PLATELET COUNT (AUTO) 90 /CMM (150-450); RED BLOOD CELL COUNT(AUTO) 2.89 MIL/uL (4.0-5.2); WHITE BLOOD COUNT (AUTO) 3.4 K/uL (4.3-11.0)
--- NOTE | 2020-08-30 07:23 | NUR ---
RN NOTES, NO SIGNIFICANT CHANGE IN CONDITION DURING THE NIGHT WILL ENDORSE CONTINUITY OF CARE TO ONCOMING NURSE.
--- NOTE | 2020-08-30 07:30 | NUR ---
RN OPENING NOTE PATIENT PRESENT IN BED, AWAKE, A/OX4, ON ROOM AIR, NO SOB NOTED, SPO2 100%, ABLE TO AMBULATE, NSR ON TELE-MONITOR, IV LINES PATENT, FLUSHED AND INTACT, PHONE AND CLL LIGHT PROVIDED WITHIN REACH, BED LOCKED IN LOWEST POSITION, WILL CONT TO MONITOR
[2020-08-30 07:41] LABS: CALCIUM, SERUM 8.2 mg/dL (8.5-10.1); CREATININE 0.4 mg/dL (0.6-1.3); MAGNESIUM 1.5 mg/dL (1.8-2.4); POTASSIUM 3.6 mmol/L (3.5-5.1)
[2020-08-30 08:00] VITALS: BP 108/76
[2020-08-30] MEDS: BLOOD SUGAR DIAGNOSTIC 1 EACH STRIP VI SCH ×2 (08:12→12:34)
[2020-08-30] MEDS: GLUCERNA SHAKE 237 ML CAN PO SCH ×2 (08:12→12:34)
[2020-08-30] MEDS: INSULIN REGULAR, HUMAN 100 UNIT/ML 3 ML VIAL SQ PRN ×2 (08:13→12:36)
[2020-08-30] MEDS: MORPHINE SULFATE INJ 2 MG/ML DISP.SYRIN IV PRN (08:50)
[2020-08-30] MEDS: THIAMINE HCL 100 MG TABLET PO SCH (08:50)
[2020-08-30] MEDS: ESCITALOPRAM OXALATE (10 MG) 10 MG TABLET PO SCH (08:50)
[2020-08-30] MEDS: ENOXAPARIN SODIUM 40 MG/0.4 ML DISP.SYRIN SQ SCH (08:51)
[2020-08-30] MEDS ORDERED: PANTOPRAZOLE 40 MG/PACK PACK GT SCH (09:00)
[2020-08-30 11:33] LABS: EOSINOPHILS % (MANUAL) 6 % (0-4); LYMPHOCYTES % (MANUAL) 22 % (16-48); MONOCYTES % (MANUAL) 4 % (0-11.0); NEUTROPHILS % (MANUAL) 68 (42-76)
--- NOTE | 2020-08-30 11:57 | NUR ---
BOLUS IS OVER, BP 82/40 Addendum: 08/30/20 at 1434 by Judith Kemp RN DEBI NOTES
[2020-08-30] MEDS: IV NS 0.9% 1,000 ML IV PRN (11:59)
[2020-08-30 12:00] VITALS: BP 95/66
[2020-08-30] MEDS: Magnesium 1GM/D5W 100ML PREMIX 100 ML IV SCH (12:00)
--- NOTE | 2020-08-30 15:30 | NUR ---
HEALTH AND WELLNESS COORDINATOR NOTE PATIENT CALLED HER FRIEND SHRUTHI GRANADO TO PICK HER UP, HE AGREED, SAYS WILL BE HERE IN 10 MIN, REMOVED ID BAND. REMOVED IV LINES, EDUCATION AND DISCHARGE PAPERWORK PROVIDED
== END 2020-08-30 16:27 | disposition home or self-care (01) | DRG 720 ==
LOC: ER 03:56 → TRANSITION 08:15 → ICU 18:32 → TELE1 08-29 06:06
PROVIDERS: ADMIT Nurse Practitioner Acute Care; ATTEND Nurse Practitioner Acute Care
DX: A41.9 Sepsis, unspecified organism (principal); N17.0 Acute kidney failure with tubular necrosis; E43 Unspecified severe protein-calorie malnutrition; E11.10 Type 2 diabetes mellitus with ketoacidosis without coma; K31.84 Gastroparesis; R64 Cachexia; E87.0 Hyperosmolality and hypernatremia; E11.43 Type 2 diabetes mellitus with diabetic autonomic (poly)neuropathy; E83.42 Hypomagnesemia; F10.239 Alcohol dependence with withdrawal, unspecified; F10.229 Alcohol dependence with intoxication, unspecified; Y90.8 Blood alcohol level of 240 mg/100 ml or more; K52.9 Noninfective gastroenteritis and colitis, unspecified; R65.20 Severe sepsis without septic shock; Z79.4 Long term (current) use of insulin; F17.200 Nicotine dependence, unspecified, uncomplicated; K21.00 Gastro-esophageal reflux disease with esophagitis, without bleeding; K76.0 Fatty (change of) liver, not elsewhere classified; N20.0 Calculus of kidney; F41.9 Anxiety disorder, unspecified; F15.10 Other stimulant abuse, uncomplicated; E87.6 Hypokalemia; Z68.1 Body mass index [BMI] 19.9 or less, adult; Z91.19 Patient's noncompliance with other medical treatment and regimen; T50.8X5A Adverse effect of diagnostic agents, initial encounter; Y92.9 Unspecified place or not applicable
CPT/HCPCS: 36415; 36600; 71045-TC; 80048-TC; 80053-TC; 80061-TC; 81001; 82010-TC; 82248-TC; 82962-TC; 83605-TC; 83735-TC; 84100-TC; 84300-TC; 84443-TC; 84484-TC; 84702-TC; 84703-TC; 85025-TC; 87040-TC; 87081-TC; 87086-TC; 97116-TC; 97530-TC; C9113; C9803; G0378; G0480; J1650; J1815; J2060; J2270; J2405; J2543; J2765; J3411; J3475; J3480; J3490; J7030; J7040; J7050; J7060; J7070; Q9967

== ENCOUNTER 2020-10-24 17:39 | Inpatient (IN) | payer OTHER ==
[~2020-10-24] VITALS: Ht 160 cm; Wt 43.5 kg
[2020-10-24] MEDS: ENOXAPARIN SODIUM 40 MG/0.4 ML DISP.SYRIN SQ SCH (00:30)
[~2020-10-24 17:39] MED LIST changes: -CHLO25CA22 PO; +GLIP5TAB13 PO; +INSU100V3 SUBCUT; +METF-442 MT; +OMEP40CA21 PO
[2020-10-24] MEDS ORDERED: IV NS 0.9% 1,000 ML BAG IV ONE (18:00)
--- NOTE | 2020-10-24 18:00 | NUR ---
ARAMIS BEDOLLA From Home "Alcoholic-last drank yesterday. Was seen in [place] this am Withdrawal/body pain". On room air, breathing evenly and unlabored. connected to the monitor and pulse ox. kept comfortable, will continue to monitor accordingly.
--- NOTE | 2020-10-24 18:05 | NUR ---
IV started and blood drawned and sent to lab.
[2020-10-24 18:13] LABS: BASOPHILS % (AUTO) 0.6 % (0.0-2.0); HEMATOCRIT 30 % (33-45); HEMOGLOBIN 10.1 g/dL (11.5-14.8); LYMPHOCYTES # (AUTO) 0.5 K/uL (0.8-4.8); LYMPHOCYTES % (AUTO) 15.9 % (20.0-44.0); MEAN CORPUSCULAR HGB CONC 34 g/dl (31.0-36.0); MEAN CORPUSCULAR VOLUME 102 fL (82-100); MONOCYTES # (AUTO) 0.1 K/uL (0.1-1.30); MONOCYTES % (AUTO) 4.5 % (2.0-12.0); NEUTROPHILS # (AUTO) 2.4 K/uL (1.8-8.9); PLATELET COUNT (AUTO) 225 K/uL (150-450); RED BLOOD CELL COUNT(AUTO) 2.97 MIL/uL (4.0-5.2)
[2020-10-24 18:23] LABS: ABG BASE EXCESS 6.2 mmol/L; ABG OXYGEN SATURATION 87.7 % (92.0-98.5); ABG PCO2 28.5 mmHg (35.0-45.0); ABG PH 7.603 (7.350-7.450); ABG PO2 51.7 mmHg (75.0-100.0); AaDO2 63.9 mmHg; COHb 0.3 % (0.5-1.5); MetHb 0.5 % (0.0-1.5); SITE, ABG Right Radial; VENT MODE, BG RA
[2020-10-24 18:27] LABS: ALANINE AMINOTRANSFERASE 63 U/L (12-78); ALKALINE PHOSPHATASE 239 U/L (46-116); ASPARTATE AMINOTRANSFERASE 116 U/L (15-37); BILIRUBIN,DIRECT 0.6 mg/dL (0.0-0.2); BILIRUBIN,TOTAL 1.1 mg/dL (0.2-1.0); CALCIUM, SERUM 7.5 mg/dL (8.5-10.1); CARBON DIOXIDE 29 mmol/L (21-32); CHLORIDE 100 mmol/L (98-107); CREATININE 0.6 mg/dL (0.6-1.3); GLUCOSE 289 mg/dL (74-106); PHOSPHORUS 3.7 mg/dL (2.5-4.9); POTASSIUM 3.8 mmol/L (3.5-5.1); SODIUM SERUM 141 mmol/L (136-145); UREA NITROGEN, BLOOD 8 mg/dL (7-18)
[2020-10-24 18:36] LABS: ALCOHOL, BLOOD < 3 mg/dL (0-0); MAGNESIUM 0.9 mg/dL (1.8-2.4)
--- NOTE | 2020-10-24 18:36 | NUR ---
LAB CALLED AND MAGNESIUM IS 0.9
[2020-10-24] MEDS ORDERED: Magnesium 1GM/D5W 100ML PREMIX 200 ML IV ONE (18:58)
[2020-10-24] MEDS ORDERED: CHLORDIAZEPOXIDE HCL 25 MG CAPSULE ONE (18:58)
[2020-10-24] MEDS ORDERED: CHLORDIAZEPOXIDE HCL 25 MG CAPSULE PO ONE (19:00)
[2020-10-24] MEDS: Magnesium 1GM/D5W 100ML PREMIX 100 ML IV SCH ×2 (19:00→20:00)
[2020-10-24] MEDS ORDERED: Thiamine 100 MG in IV D5W 50 ML IV SCH (19:00)
--- NOTE | 2020-10-24 19:05 | NUR ---
rec'd report from shubham webber for jose
--- NOTE | 2020-10-24 19:10 | NUR ---
SUBMITTED MOVE SHEET
--- NOTE | 2020-10-24 19:16 | NUR ---
report given to Mel ENRIQUEZ next shift for jose.
[2020-10-24 20:14] LABS: CREATININE 0.6 mg/dL (0.6-1.3); POTASSIUM 3.6 mmol/L (3.5-5.1)
[2020-10-24 20:18] LABS: MAGNESIUM 1.5 mg/dL (1.8-2.4); PHOSPHORUS 3.6 mg/dL (2.5-4.9)
--- NOTE | 2020-10-24 20:20 | NUR ---
SHANTANU MAYORGA NP PAGED FOR ADMISSION.
--- NOTE | 2020-10-24 20:34 | NUR ---
taken to ct
[2020-10-24] MEDS ORDERED: ONDANSETRON HCL/PF 4 MG/2 ML VIAL IVP PRN (21:00)
[2020-10-24] MEDS ORDERED: DEXTROSE 50%-WATER 50 ML DISP.SYRIN IV PRN (21:00)
--- NOTE | 2020-10-24 21:01 | NUR ---
Called pharmacy to have meds verified
[2020-10-24 21:57] LABS: CREATININE 0.7 mg/dL (0.6-1.3); POTASSIUM 3.6 mmol/L (3.5-5.1)
[2020-10-24] MEDS: BLOOD SUGAR DIAGNOSTIC 1 EACH STRIP IN SCH (22:00)
[2020-10-24 22:01] LABS: MAGNESIUM 1.8 mg/dL (1.8-2.4); PHOSPHORUS 3.5 mg/dL (2.5-4.9)
--- NOTE | 2020-10-24 22:14 | NUR ---
f/u with pharmacy about med verification
[2020-10-24] MEDS: MAG HYDROX/AL HYDROX/SIMETH 30 ML UDC PO PRN (22:19)
[2020-10-24] MEDS ORDERED: FOLIC ACID 1 MG TABLET PO ONE (22:19)
[2020-10-24] MEDS: ACETAMINOPHEN 325 MG TABLET PO PRN (22:19)
[2020-10-24] MEDS ORDERED: Magnesium 1GM/D5W 100ML PREMIX 100 ML IV SCH (22:20)
[2020-10-24] MEDS ORDERED: MAG HYDROX/AL HYDROX/SIMETH 30 ML UDC ONE (22:22)
[2020-10-24] MEDS ORDERED: FOLIC ACID 1 MG TABLET ONE (22:22)
[2020-10-24] MEDS ORDERED: ACETAMINOPHEN 325 MG TABLET ONE (22:22)
[2020-10-24] MEDS ORDERED: INSULIN REGULAR, HUMAN 100 UNIT/ML 10 ML VIAL ONE (22:35)
[2020-10-24] MEDS: INSULIN REGULAR, HUMAN 100 UNIT/ML 3 ML VIAL SQ PRN (22:40)
[2020-10-24] MEDS ORDERED: Magnesium 1GM/D5W 100ML PREMIX 100 ML IV ONE (22:44)
[2020-10-24] MEDS ORDERED: ZOLPIDEM TARTRATE 5 MG TABLET ONE (22:53)
[2020-10-24] MEDS ORDERED: LORAZEPAM INJ 2 MG/ML VIAL ONE (22:56)
[2020-10-24] MEDS: LORAZEPAM INJ 2 MG/ML VIAL IV PRN (23:00)
[2020-10-24] MEDS: ZOLPIDEM TARTRATE 5 MG TABLET PO PRN (23:00)
--- NOTE | 2020-10-24 23:03 | NUR ---
stk med pull for ambbethanie, non admin, had to be pulled from floor
[2020-10-25] MEDS ORDERED: IOHEXOL-350 100 ML VIAL IV ONE (00:43)
[2020-10-25] MEDS ORDERED: IV NS 0.9% 250 ML IV ONE (00:44)
--- NOTE | 2020-10-25 00:51 | NUR ---
taken to ct
--- NOTE | 2020-10-25 01:05 | NUR ---
returned from ct
[2020-10-25] MEDS ORDERED: ENOXAPARIN SODIUM 40 MG/0.4 ML DISP.SYRIN SQ ONE (01:06)
[2020-10-25] MEDS ORDERED: ACETAMINOPHEN 325 MG TABLET ONE (03:19)
[2020-10-25] MEDS: ACETAMINOPHEN 325 MG TABLET PO PRN ×2 (04:15→11:04)
--- NOTE | 2020-10-25 05:46 | NUR ---
CALLED XUAN TO HAVE IMAGE READ
--- NOTE | 2020-10-25 06:09 | NUR ---
lab at bedside
[2020-10-25] MEDS: MAG HYDROX/AL HYDROX/SIMETH 30 ML UDC PO PRN (06:25)
[2020-10-25] MEDS ORDERED: MAG HYDROX/AL HYDROX/SIMETH 30 ML UDC ONE (06:27)
[2020-10-25] MEDS: LORAZEPAM INJ 2 MG/ML VIAL IV PRN ×3 (06:30→22:27)
[2020-10-25] MEDS ORDERED: LORAZEPAM INJ 2 MG/ML VIAL ONE (06:36)
[2020-10-25 06:42] LABS: BASOPHILS % (AUTO) 0.6 % (0.0-2.0); EOSINOPHILS % (AUTO) 1.6 % (0.0-6.0); HEMATOCRIT 29 % (33-45); HEMOGLOBIN 9.8 g/dL (11.5-14.8); LYMPHOCYTES # (AUTO) 1.6 K/uL (0.8-4.8); LYMPHOCYTES % (AUTO) 38.3 % (20.0-44.0); MEAN CORPUSCULAR HGB CONC 34 g/dl (31.0-36.0); MEAN CORPUSCULAR VOLUME 102 fL (82-100); MONOCYTES # (AUTO) 0.2 K/uL (0.1-1.30); MONOCYTES % (AUTO) 5.4 % (2.0-12.0); NEUTROPHILS # (AUTO) 2.2 K/uL (1.8-8.9); NEUTROPHILS % (AUTO) 54.1 % (43.0-81.0); PLATELET COUNT (AUTO) 191 K/uL (150-450); RED BLOOD CELL COUNT(AUTO) 2.83 MIL/uL (4.0-5.2); WHITE BLOOD COUNT (AUTO) 4.1 K/uL (4.3-11.0)
[2020-10-25] MEDS: BLOOD SUGAR DIAGNOSTIC 1 EACH STRIP IN SCH ×4 (07:09→22:06)
--- NOTE | 2020-10-25 07:11 | NUR ---
gave report to MINA Schumacher for jose
[2020-10-25 07:25] LABS: CALCIUM, SERUM 7.1 mg/dL (8.5-10.1); CREATININE 0.5 mg/dL (0.6-1.3); MAGNESIUM 1.8 mg/dL (1.8-2.4); POTASSIUM 3.3 mmol/L (3.5-5.1)
[2020-10-25] MEDS: PANTOPRAZOLE 40 MG TABLET.DR PO SCH (07:30)
--- NOTE | 2020-10-25 07:40 | NUR ---
assumed patient care 40 years old female with etoh abuse, alert, oriented x4 no tremors, denies nausea vomiting, no seizure safety maintained will continue to monitor.
[2020-10-25] MEDS ORDERED: CHLORDIAZEPOXIDE HCL 25 MG CAPSULE ONE (08:49)
[2020-10-25] MEDS ORDERED: PANTOPRAZOLE 40 MG TABLET.DR PO ONE (08:50)
[2020-10-25] MEDS ORDERED: FOLIC ACID 1 MG TABLET ONE (08:50)
[2020-10-25] MEDS ORDERED: THIAMINE HCL 100 MG TABLET ONE (08:50)
[2020-10-25] MEDS ORDERED: POTASSIUM CHLORIDE 20 MEQ TAB.PRT.SR PO ONE (08:50)
[2020-10-25] MEDS ORDERED: ASPIRIN 81 MG TAB.CHEW ONE (08:51)
[2020-10-25] MEDS ORDERED: POTASSIUM CHLORIDE 20 MEQ TAB.PRT.SR PO SCH (09:00)
[2020-10-25] MEDS: CHLORDIAZEPOXIDE HCL 25 MG CAPSULE PO SCH ×3 (09:41→17:14)
[2020-10-25] MEDS: FOLIC ACID 1 MG TABLET PO SCH (09:41)
[2020-10-25] MEDS: ASPIRIN 81 MG TAB.CHEW PO SCH (09:41)
[2020-10-25] MEDS: THIAMINE HCL 100 MG TABLET PO SCH (09:41)
--- NOTE | 2020-10-25 10:03 | NUR ---
patient stable for transfer to tele room 327-2 all questions answered vital stable no pain nausea/vomiting, no tremors.
--- NOTE | 2020-10-25 10:30 | NUR ---
Medical Staff Services Coordinator consult: coordinator of genetic services consult requested for ETOH use. Patient is a 40-year-old, female. SW met with patient at her bedside in the emergency department. Patient was alert and oriented x4. Patient was resting. Per chart, patient was brought in by ambulance from home on 10/24/20 for an alcohol withdrawal. Patient stated that she is currently living with roommates at [id number] [place] [id number]; [phone]. Patient stated that she currently has no source of income and receives support from her ex-significant other, Aman, . SW asked patient about her history of substance use. Patient reported a history of substance use rehabilitation at [facility] ([address] [place] [address]; ) in June of this year. Patient reported, "my roommates are alcoholics." Patient stated that her last alcohol use was from two days ago and reported that her daily frequency is around "half a liter a day." Patient denied drug use. SW assessed patient's history of mental illness and patient reported, Depression and Anxiety. Patient stated that she is not currently taking medication and last took medication for her mental illnesses while she was at [facility]. Patient stated that she is not currently seeing a therapist or psychiatrist. Patient denied suicidal and homicidal ideation. SW offered the patient substance use/addiction and outpatient mental health resources. Patient accepted the resources and thanked SW. SW discussed discharge plans with the patient and patient stated that she would return to her prior living arrangement at home and would be provided transportation from her ex-significant other, Aman. PLAN: Patient plans to return to her prior living arrangement at the time of discharge. No further SS intervention at this time, however, SW will remain available as needed. RESOURCES: Counseling--Outpatient [facility] [address], [place] [address] (Specializes in in-depth psychotherapy for emotional distress: anxiety, depression, interpersonal conflicts, life transitions, childhood abuse) PSYCHIATRIC OUTPATIENT SERVICES [facility] Partial Hospitalization and Intensive Outpatient Program (Managed Care and [facility] Only) [address] [facility] [address] [facility] Partial Hospitalization and Outpatient Program [address] [place], [place] [id number] [facility] Partial Hospitalization and Outpatient Program [address] [place] [address] AMBERLY PAYNE [facility] Mental [facility] [address] [place] [address] [facility] Partial Hospitalization and Outpatient Program [address] [address] [facility] [place] [phone] Substance use resources provided included: [facility] Substance Abuse Self-Helpline ([facility]) ; [facility] [address] [place] [address] ; [facility] [address] [facility] [address] ; [facility] [address] [facility] [id number] ; [facility] [address] [facility] [phone] ; [facility] [address] [facility] [phone] ; [facility]; [facility] [place]; [facility]; Alcoholics Anonymous -[facility]
[2020-10-25 11:00] VITALS: BP 104/74
--- NOTE | 2020-10-25 11:00 | NUR ---
QUILL CLEANERISOBUTYLENE OPERATOR CHIEF NOTES RECEIVED ADMISSION FROM ER. PATIENT MEDICALLY STABLE AT THIS TIME, VITAL SIGNS WNL; A/O X4. ON ROOM AIR; BREATHING EVEN AND UNLABORED; NO SOB AT THIS TIME. COMPLAINING OF PAIN IN HER KNEE AND SHOULDER. RAC G # 18 IV ACCESS PRESENT AND INTACT; SL. SAFETY PRECAUTIONS IN PLACE; BED IN LOW POSITION AND LOCKED, RAILS UP X 2, CALL LIGHT WITHIN REACH. WILL CONTINUE TO MONITOR PATIENT.
--- NOTE | 2020-10-25 11:03 | NUR ---
KILN OPERATOR HELPER NOTES PATIENT COMPLAINING OF PAIN IN HER KNEE AND SHOULDER. PRN TYLENOL ADMINISTERED.
[2020-10-25 16:00] VITALS: BP 104/74
[2020-10-25] MEDS: INSULIN REGULAR, HUMAN 100 UNIT/ML 3 ML VIAL SQ PRN ×2 (17:27→22:06)
--- NOTE | 2020-10-25 18:35 | NUR ---
SENIOR REVENUE ACCOUNTANT CLOSING NOTES PATIENT REMAINS IN BED, ASLEEP AT THIS TIME. PATIENT ON ROOM AIR; BREATHING EVEN AND UNLABORED; NO SOB AT THIS TIME. NO COMPLAINS OF PAIN AT THIS MOMENT. RAC G # 18 IV ACCESS PRESENT AND INTACT; SL. ALL NEEDS ATTENDED DURING SHIFT. SAFETY PRECAUTIONS IN PLACE; BED IN LOW POSITION AND LOCKED, RAILS UP X 2, CALL LIGHT WITHIN REACH. WILL ENDORSE TO E COMMERCE SOLUTION ARCHITECT NURSE.
--- NOTE | 2020-10-25 19:45 | NUR ---
PHOTOGRAMMETRIC COMPILATION SPECIALIST OPENING NOTE PATIENT A/OX4; ABLE TO MAKE NEEDS KNOWN ON ROOM AIR TOLERATING WELL WITH NO SOB. EXTERNAL PRODUCTION BOW MAKER READS NSR AT 74. PATIENT DENIES PAIN/DISCOMFORT AT THIS TIME. RAC #20G S/L; PATENT AND INTACT. SAFETY MEASURES IN PLACE: BED IN LOWEST LOCKED POSITION, SIDE RAILS UPX2, CALL LIGHT WITHIN EASY REACH. PATIENT IN STABLE CONDITION. WILL CONTINUE PLAN OF CARE.
[2020-10-25 20:00] VITALS: BP 100/68
[2020-10-25] MEDS: ENOXAPARIN SODIUM 40 MG/0.4 ML DISP.SYRIN SQ SCH (22:08)
[2020-10-25] MEDS: ZOLPIDEM TARTRATE 5 MG TABLET PO PRN (22:27)
--- NOTE | 2020-10-25 22:27 | NUR ---
CLAIMS CLERK NOTE PATIENT C/O INSOMNIA AND ANXIETY. ADMINISTERED AMBIEN AND ATIVAN ORDERED. WILL CONT TO REASSESS FOR INSOMNIA AND ANXIETY IN 1 HOUR.
[2020-10-26] VITALS: BP 98/73
[2020-10-26] MEDS: ACETAMINOPHEN 325 MG TABLET PO PRN ×2 (00:23→09:22)
[2020-10-26] MEDS ORDERED: LORAZEPAM INJ 2 MG/ML VIAL IV ONE (01:00)
--- NOTE | 2020-10-26 01:43 | NUR ---
CARE MANAGER CNA NOTE PATIENT C/O INSOMNIA. NOTIFIED MAYORGA PRODUCTION WELDING SUPERVISOR AND ORDERED FOR ATIVAN 5MG IV ONCE. ADMINISTERED MEDICATION ORDERED. WILL CONTINUE TO REASSESS FOR INSOMNIA IN 1 HOUR
[2020-10-26 04:00] VITALS: BP 90/65
[2020-10-26] MEDS: INSULIN REGULAR, HUMAN 100 UNIT/ML 3 ML VIAL SQ PRN ×2 (06:09→12:35)
[2020-10-26] MEDS: BLOOD SUGAR DIAGNOSTIC 1 EACH STRIP IN SCH ×2 (06:42→12:31)
--- NOTE | 2020-10-26 06:57 | NUR ---
NATURE PHOTOGRAPHER CLOSING NOTE PATIENT A/OX4; ABLE TO MAKE NEEDS KNOWN ON ROOM AIR TOLERATING WELL WITH NO SOB. EXTERNAL WOOL SUPPLIER READS NSR AT 69. RAC #20G S/L AND L HAND #20G S/L; PATENT AND INTACT. SAFETY MEASURES IN PLACE: BED IN LOWEST LOCKED POSITION, SIDE RAILS UPX2, CALL LIGHT WITHIN EASY REACH. PATIENT IN STABLE CONDITION. WILL ENDORSE PLAN OF CARE TO ONCOMING MORNING RN.
--- NOTE | 2020-10-26 07:30 | NUR ---
received pt. in am vs stable.requesting ativan,informed her to soon receive librium and bp low.no other complaints offered.
[2020-10-26 08:00] VITALS: BP 98/63
[2020-10-26] MEDS: FOLIC ACID 1 MG TABLET PO SCH (09:21)
[2020-10-26] MEDS: ASPIRIN 81 MG TAB.CHEW PO SCH (09:21)
[2020-10-26] MEDS: THIAMINE HCL 100 MG TABLET PO SCH (09:21)
[2020-10-26] MEDS: CHLORDIAZEPOXIDE HCL 25 MG CAPSULE PO SCH ×2 (09:21→12:33)
[2020-10-26] MEDS: PANTOPRAZOLE 40 MG TABLET.DR PO SCH (09:27)
--- NOTE | 2020-10-26 11:30 | NUR ---
dr. sanchez in and plans for dc today.
--- NOTE | 2020-10-26 12:00 | NUR ---
med compliant. appetite good.
--- NOTE | 2020-10-26 13:37 | NUR ---
hep locks out. bandages to sites.given dc instructions and belonging sheet signed,taken by family member in w/c to lobby accompanied by community development director.tele dc'd as well.to be discharged.
== END 2020-10-26 13:45 | disposition home or self-care (01) | DRG 775 ==
LOC: ER 17:42 → TRANSITION 22:18 → TELE 10-25 09:51
PROVIDERS: ADMIT Nurse Practitioner Family; ATTEND Internal Medicine
DX: F10.239 Alcohol dependence with withdrawal, unspecified (principal); J96.01 Acute respiratory failure with hypoxia; E44.1 Mild protein-calorie malnutrition; E10.65 Type 1 diabetes mellitus with hyperglycemia; E10.42 Type 1 diabetes mellitus with diabetic polyneuropathy; D50.9 Iron deficiency anemia, unspecified; F32.9 Major depressive disorder, single episode, unspecified; Z68.1 Body mass index [BMI] 19.9 or less, adult; E83.42 Hypomagnesemia; K76.0 Fatty (change of) liver, not elsewhere classified; Z79.4 Long term (current) use of insulin; Y90.0 Blood alcohol level of less than 20 mg/100 ml; R74.01 Elevation of levels of liver transaminase levels; E88.09 Other disorders of plasma-protein metabolism, not elsewhere classified; Z20.822 Contact with and (suspected) exposure to COVID-19; F39 Unspecified mood [affective] disorder
CPT/HCPCS: 36415; 36600; 71045-TC; 71250-TC; 80048-TC; 80061-TC; 80076-TC; 82962-TC; 83690-TC; 83735-TC; 84100-TC; 84484-TC; 84703-TC; 85025-TC; 85378-TC; 87081-TC; 97116-TC; 97530-TC; C9803; G0378; G0480; J1650; J1815; J2060; J3411; J3475; J7030; J7050; J7060; Q9967

== ENCOUNTER 2021-04-24 19:02 | Inpatient (IN) | payer OTHER ==
[~2021-04-24] VITALS: Ht 160 cm; Wt 43.1 kg
--- NOTE | 2021-04-24 19:45 | NUR ---
BIBRA88. CP X YESTERDAY, DIFFICULTY BREATHING X 2HRS. BS 211. TACHY 124 BP. 75/47. ADMITS TO DRINKING. PATIENT ALERT AND ORIENTED X2. AMBULATORY WITH ASSISTANCE.
--- NOTE | 2021-04-24 19:58 | NUR ---
BLOOD COLLECTED AND SENT TO LAB
[2021-04-24] MEDS ORDERED: PANTOPRAZOLE 40 MG VIAL IV ONE (20:00)
[2021-04-24] MEDS ORDERED: ONDANSETRON HCL/PF 4 MG/2 ML VIAL IVP ONE (20:00)
[2021-04-24] MEDS ORDERED: IV NS 0.9% 1,000 ML BAG IV ONE ×2 (20:00→21:30)
[2021-04-24] MEDS ORDERED: PANTOPRAZOLE 40 MG VIAL ONE (20:08)
[2021-04-24] MEDS ORDERED: ONDANSETRON HCL/PF 4 MG/2 ML VIAL ONE (20:08)
--- NOTE | 2021-04-24 20:46 | NUR ---
RT AT PT'S BEDSIDE FOR ABG
[2021-04-24 20:59] LABS: ABG BASE EXCESS -27.1 mmol/L; ABG PCO2 10.1 mmHg (35.0-45.0); ABG PH 6.988 (7.350-7.450); ABG PO2 139.1 mmHg (75.0-100.0); COHb 0.2 % (0.5-1.5); MetHb 0.3 % (0.0-1.5); O2Hb 96.3 % (94.0-97.0); SITE, ABG Right Brachial; VENT MODE, BG ROOM AIR
[2021-04-24] MEDS ORDERED: INSULIN REGULAR, HUMAN 100 UNITS in IV NS 0.9% 100 ML IV PRN (21:30)
[2021-04-24 21:42] LABS: BASOPHILS % (AUTO) 0.5 % (0.0-2.0); HEMATOCRIT 37 % (33-45); HEMOGLOBIN 10.9 g/dL (11.5-14.8); LYMPHOCYTES # (AUTO) 0.3 K/uL (0.8-4.8); LYMPHOCYTES % (AUTO) 3.3 % (20.0-44.0); MEAN CORPUSCULAR HGB CONC 30 g/dl (31.0-36.0); MEAN CORPUSCULAR VOLUME 118 fL (82-100); MONOCYTES # (AUTO) 0.4 K/uL (0.1-1.30); MONOCYTES % (AUTO) 4.4 % (2.0-12.0); NEUTROPHILS # (AUTO) 7.7 K/uL (1.8-8.9); NEUTROPHILS % (AUTO) 91.8 % (43.0-81.0); PLATELET COUNT (AUTO) 214 K/uL (150-450); RED BLOOD CELL COUNT(AUTO) 3.12 MIL/uL (4.0-5.2); WHITE BLOOD COUNT (AUTO) 8.3 K/uL (4.3-11.0)
[2021-04-24] MEDS ORDERED: INSULIN REGULAR, HUMAN 100 UNIT/ML 10 ML VIAL ONE (21:44)
--- NOTE | 2021-04-24 21:45 | NUR ---
insulin drip started at 5units/hour per md order unable to sign in emar.
[2021-04-24 21:58] LABS: ALANINE AMINOTRANSFERASE 111 U/L (12-78); ALBUMIN 3.1 g/dL (3.4-5.0); ALCOHOL, BLOOD 81 mg/dL (0-0); ALKALINE PHOSPHATASE 576 U/L (46-116); ASPARTATE AMINOTRANSFERASE 416 U/L (15-37); BAND % (MANUAL) 1 % (0.0-5.0); BILIRUBIN,DIRECT 3.3 mg/dL (0.0-0.2); BILIRUBIN,TOTAL 3.6 mg/dL (0.2-1.0); CALCIUM, SERUM 8.5 mg/dL (8.5-10.1); CHLORIDE 85 mmol/L (98-107); CREATININE 1.3 mg/dL (0.6-1.3); GLUCOSE 225 mg/dL (74-106); LIPASE 22 U/L (73-393); LYMPHOCYTES % (MANUAL) 6 % (16-48); MONOCYTES % (MANUAL) 3 % (0-11.0); NEUTROPHILS % (MANUAL) 90 (42-76); POTASSIUM 2.9 mmol/L (3.5-5.1); SODIUM SERUM 144 mmol/L (136-145); TOTAL PROTEIN, SERUM 7.3 g/dL (6.4-8.2); UREA NITROGEN, BLOOD 10 mg/dL (7-18)
[2021-04-24] MEDS ORDERED: IV D5/ 0.9% NACL 1,000 ML IV PRN (22:00)
--- NOTE | 2021-04-24 22:05 | NUR ---
MRSA SWAB COLLECTED AND SENT TO LAB. PATIENT'S BELONGINGS LIST DONE.
[2021-04-24 22:36] LABS: ACETAMINOPHEN < 2 ug/ml (10-30)
[2021-04-24 22:37] LABS: CARBON DIOXIDE 5 mmol/L (21-32)
[2021-04-24 22:45] LABS: MAGNESIUM 2.5 mg/dL (1.8-2.4)
[2021-04-24 23:04] LABS: SERUM AMMONIA 391 umol/L (11-32)
[2021-04-24] MEDS: POTASSIUM CL. PREMIX PERIPHER. 50 ML IV SCH (23:21)
[2021-04-24] MEDS ORDERED: LACTULOSE 10 G/15 ML UDC (PYXIS) ONE (23:26)
[2021-04-24] MEDS ORDERED: LACTULOSE 10 G/15 ML UDC (PYXIS) PO PRN (23:30)
[2021-04-25] MEDS ORDERED: IV NS 0.9% 1,000 ML IV SCH
[2021-04-25] MEDS ORDERED: LORAZEPAM INJ 2 MG/ML VIAL IV PRN
[2021-04-25] MEDS ORDERED: ZOLPIDEM TARTRATE 5 MG TABLET PO PRN
[2021-04-25] MEDS ORDERED: DEXTROSE 50%-WATER 50 ML DISP.SYRIN IV PRN
[2021-04-25] MEDS ORDERED: INSULIN REGULAR, HUMAN 100 UNIT in IV NS 0.9% 99 ML IV PRN
[2021-04-25] MEDS ORDERED: Z GUARD REMEDY 4 OZ OINT TP PRN
[2021-04-25] MEDS ORDERED: IV PREMIX D5 1/2NS + KCL 1,000 ML IV ONE
[2021-04-25] MEDS ORDERED: MAGNESIUM HYDROXIDE 30 ML UDC PO PRN
[2021-04-25] MEDS: POTASSIUM CL. PREMIX PERIPHER. 50 ML IV SCH ×13 (00:11→16:54)
[2021-04-25] MEDS: BLOOD SUGAR DIAGNOSTIC 1 EACH STRIP IN SCH ×24 (00:12→23:05)
[2021-04-25] MEDS ORDERED: Folic acid 1 MG/0.2 ML VIAL ONE (00:13)
[2021-04-25] MEDS: Folic acid 1 MG in IV D5W 50 ML IV SCH ×2 (00:16→23:39)
[2021-04-25] MEDS ORDERED: Thiamine 100 MG/ML VIAL ONE (00:21)
[2021-04-25] MEDS: Thiamine 100 MG in IV D5W 50 ML IV SCH (01:13)
[2021-04-25 01:22] LABS: MAGNESIUM 1.5 mg/dL (1.8-2.4); PHOSPHORUS 4.1 mg/dL (2.5-4.9)
--- NOTE | 2021-04-25 01:30 | NUR ---
PATIENT USED CAMMODE AT BEDSIDE PASSED A BM.
[2021-04-25 02:29] LABS: CALCIUM, SERUM 7.1 mg/dL (8.5-10.1); CREATININE 0.9 mg/dL (0.6-1.3); POTASSIUM 3.5 mmol/L (3.5-5.1)
--- NOTE | 2021-04-25 04:15 | NUR ---
PATIENT ALERT RESTING COMFORTABLY NO COMPLAINTS
--- NOTE | 2021-04-25 07:23 | NUR ---
RECEIVED REPORT FROM MINA FLORENTINO FOR MINA. PT IS AAOX3, NOT IN RESPIRATORY DISTRESS, ON ROUSTABOUT SUPERVISOR, WITH ONGOING IV FLUIDS, WILL CONTINUE TO MONITOR.
--- NOTE | 2021-04-25 07:25 | NUR ---
INSULIN DRIP ADJUSTED TO 0.5UNITS/HR PER BLOOD SUGAR OF 129MG/DL BASED ON DKA PROTOCOL.
[2021-04-25 08:09] LABS: BASOPHILS % (AUTO) 0.2 % (0.0-2.0); HEMATOCRIT 24 % (33-45); HEMOGLOBIN 7.7 g/dL (11.5-14.8); LYMPHOCYTES # (AUTO) 0.3 K/uL (0.8-4.8); LYMPHOCYTES % (AUTO) 3.3 % (20.0-44.0); MEAN CORPUSCULAR HGB CONC 32 g/dl (31.0-36.0); MEAN CORPUSCULAR VOLUME 109 fL (82-100); MONOCYTES # (AUTO) 0.7 K/uL (0.1-1.30); MONOCYTES % (AUTO) 7.6 % (2.0-12.0); NEUTROPHILS # (AUTO) 8.3 K/uL (1.8-8.9); NEUTROPHILS % (AUTO) 88.9 % (43.0-81.0); PLATELET COUNT (AUTO) 122 K/uL (150-450); RED BLOOD CELL COUNT(AUTO) 2.19 MIL/uL (4.0-5.2); WHITE BLOOD COUNT (AUTO) 9.3 K/uL (4.3-11.0)
[2021-04-25 08:48] LABS: MAGNESIUM 1.3 mg/dL (1.8-2.4)
[2021-04-25 08:59] LABS: PHOSPHORUS 0.9 mg/dL (2.5-4.9)
[2021-04-25 11:06] LABS: CALCIUM, SERUM 7.1 mg/dL (8.5-10.1); CREATININE 0.7 mg/dL (0.6-1.3)
[2021-04-25 11:14] LABS: POTASSIUM 2.8 mmol/L (3.5-5.1)
[2021-04-25] MEDS ORDERED: Magnesium 1GM/D5W 100ML PREMIX 400 ML IV ONE (11:59)
[2021-04-25] MEDS: Magnesium 1GM/D5W 100ML PREMIX 100 ML IV SCH ×4 (12:02→15:01)
--- NOTE | 2021-04-25 12:45 | NUR ---
PATIENT SEEN BY ELANA LUCAS
[2021-04-25] MEDS ORDERED: POTASSIUM CHLORIDE 20 MEQ TAB.PRT.SR PO ONE ×3 (12:49→17:00)
[2021-04-25] MEDS ORDERED: K PHOS NEUTRAL 250 MG TABLET ONE (12:52)
[2021-04-25] MEDS ORDERED: ONDANSETRON HCL/PF 4 MG/2 ML VIAL ONE (13:00)
[2021-04-25] MEDS ORDERED: K PHOS NEUTRAL 250 MG TABLET PO ONE (13:00)
[2021-04-25] MEDS: ONDANSETRON HCL/PF 4 MG/2 ML VIAL IVP PRN (13:04)
[2021-04-25] MEDS: MULTIVITAMINS,THERAGRAN 1 UDTAB TABLET PO SCH (13:14)
[2021-04-25] MEDS ORDERED: POTASSIUM CL. PREMIX PERIPHER. 250 ML ONE (14:09)
[2021-04-25] MEDS: Potassium Chloride 20 MEQ in IV D5/0.45 NACL 1,000 ML IV PRN (14:42)
--- NOTE | 2021-04-25 16:21 | NUR ---
MIDLINE RN AT BEDSIDE.
[2021-04-25] MEDS ORDERED: MIRTAZAPINE 15 MG TABLET ONE (16:57)
[2021-04-25] MEDS: GLUCERNA SHAKE 237 ML CAN PO SCH (17:00)
--- NOTE | 2021-04-25 17:03 | NUR ---
PT REFUSED POTASSIUM PO.
[2021-04-25] MEDS ORDERED: POTASSIUM CHLORIDE 20 MEQ POWDER PACKET PO ONE (18:00)
--- NOTE | 2021-04-25 18:06 | NUR ---
DIAPER CHANGED. SAAVEDRA CATH INSERTED. URINE SPECIMEN COLLECTED AND SENT TO LAB.
[2021-04-25] MEDS ORDERED: POTASSIUM CHLORIDE 20 MEQ POWDER PACKET ONE (18:11)
[2021-04-25 18:53] LABS: BILIRUBIN,URINE SMALL (NEGATIVE); COLOR,URINE YELLOW (YELLOW); LEUKOCYTE ESTERASE ,URINE MODERATE (NEGATIVE); NITRITE, URINE POSITIVE (NEGATIVE); PROTEIN,URINE NEGATIVE (NEGATIVE); UGLUCOSE NEGATIVE (NEGATIVE); UROBILINOGEN,URINE 0.2 EU/dL (0.2)
[2021-04-25 19:09] LABS: BACTERIA,URINE 4+ /HPF (None Seen); RBC,URINE 21-50 /HPF (0-2); SQUAMOUS EPITHELIAL CELL,UR 0-2 /HPF (None Seen); WBC,URINE 51-80 /HPF (0-3)
[2021-04-25 19:15] LABS: CALCIUM, SERUM 7.4 mg/dL (8.5-10.1); CREATININE 0.7 mg/dL (0.6-1.3); POTASSIUM 3.8 mmol/L (3.5-5.1)
--- NOTE | 2021-04-25 20:00 | NUR ---
BLOOD SUGAR 245
--- NOTE | 2021-04-25 20:05 | NUR ---
ICU 258
--- NOTE | 2021-04-25 20:30 | NUR ---
REPORT GIVEN TO BOONE ENRIQUEZ ICU
--- NOTE | 2021-04-25 20:40 | NUR ---
ADMIT NOTE RECEIVED PATIENT FROM ER, TRANSFERRED TO ROOM 258. SAFELY TRANSFERRED TO BED. PATIENT IS ADMITTED FOR DKA. PATIENT IS ALERT AND ORIENTED X2-3, ABLE TO MAKE NEEDS KNOWN. ON ROOM AIR, NO S/S OF RESPIRATORY DISTRESS. NOTED WITH SAAVEDRA CATH, DRAINING URINE VIA GRAVITY. IV ACCESS ON ABBIE MIDLINE, RIGHT AC #20 AND LEFT AC #20, ALL PATENT AND INTACT. SKIN ASSESSMENT DONE, NOTED WITH OLD BURN WOUNDS ON ABDOMEN. NOTED WITH BM, LOOSE GREEN STOOL. KEPT CLEAN AND DRY. ORIENTED PATIENT TO STAFF, ROOM, AND USE OF CALL LIGHT. BED LOCKED AND IN LOWEST POSITION. CALL LIGHT WITHIN REACH. ALL NEEDS ANTICIPATED.
--- NOTE | 2021-04-25 20:53 | NUR ---
PT TRANSPORTED VIA ACLS PROTOCOL IN STABLE CONDITION
[2021-04-25 21:00] VITALS: BP 147/74
[2021-04-25] MEDS: MIRTAZAPINE 15 MG TABLET PO SCH (21:12)
[2021-04-25 21:31] VITALS: BP 102/73
[2021-04-25 22:00] VITALS: BP 80/57
[2021-04-25 23:00] VITALS: BP 96/66
[2021-04-25 23:58] LABS: CALCIUM, SERUM 7.5 mg/dL (8.5-10.1); CREATININE 0.7 mg/dL (0.6-1.3); POTASSIUM 3.9 mmol/L (3.5-5.1)
[2021-04-26] VITALS (20 sets, daily range): BP systolic 81–119; BP diastolic 51–89
[2021-04-26] MEDS ORDERED: IV NS 0.9% 250 ML IV PRN
[2021-04-26] MEDS: BLOOD SUGAR DIAGNOSTIC 1 EACH STRIP IN SCH ×10 (00:07→21:20)
[2021-04-26] MEDS: Thiamine 100 MG in IV D5W 50 ML IV SCH (00:25)
[2021-04-26] MEDS: MAG HYDROX/AL HYDROX/SIMETH 30 ML UDC PO PRN (00:26)
[2021-04-26] MEDS: ACETAMINOPHEN 325 MG TABLET PO PRN ×3 (00:26→16:31)
[2021-04-26] MEDS ORDERED: IV PREMIX D5 1/2NS + KCL 1,000 ML IV ONE (00:33)
[2021-04-26] MEDS: Potassium Chloride 20 MEQ in IV D5/0.45 NACL 1,000 ML IV PRN ×2 (00:52→16:31)
[2021-04-26 03:25] LABS: CALCIUM, SERUM 7.1 mg/dL (8.5-10.1); CREATININE 0.8 mg/dL (0.6-1.3); POTASSIUM 4.2 mmol/L (3.5-5.1)
--- NOTE | 2021-04-26 05:20 | NUR ---
RN NOTE PATIENT ANION GAP 13. BLOOD SUGAR 182, ON INSULIN DRIP 0.5 UNITS/HR. CONTINUES ON IVF D5 1/2 NS 20 MEQ K @ 100ML/HR AND FULL LIQUID DIET. ALSO BLOOD PRESSURE NOTED 85/59. INFORMED JESSICA ABRAMS WITH NEW ORDERS NOTED AND CARRIED OUT.
[2021-04-26] MEDS ORDERED: IV NS 0.9% 500 ML IV ONE (05:30)
[2021-04-26] MEDS ORDERED: INSULIN REGULAR, HUMAN 100 UNIT/ML 10 ML VIAL SQ ONE (05:30)
[2021-04-26] MEDS ORDERED: DEXTROSE 50%-WATER 50 ML DISP.SYRIN IV PRN (07:00)
--- NOTE | 2021-04-26 07:34 | NUR ---
RN NOTE PATIENT IS AWAKE, ALERT. ORIENTED X3. ON ROOM AIR O2 SAT 100%. SAAVEDRA CATH DRAINED 1100 CC YELLOW URINE. IV ACCESS ON ABBIE MIDLINE, RIGHT AC #20 AND LEFT AC #20, ALL PATENT AND INTACT. CONTINUES ON D5 1/2 NS 20 MEQ K @ 100ML/HR. KEPT CLEAN AND DRY. BED LOCKED AND IN LOWEST POSITION. CALL LIGHT WITHIN REACH. ENDORSED TO AM SHIFT.
[2021-04-26] MEDS: GLUCERNA SHAKE 237 ML CAN PO SCH ×2 (08:00→18:08)
[2021-04-26] MEDS: MULTIVITAMINS,THERAGRAN 1 UDTAB TABLET PO SCH (08:55)
[2021-04-26 10:17] LABS: CALCIUM, SERUM 7.2 mg/dL (8.5-10.1); POTASSIUM 3.8 mmol/L (3.5-5.1)
[2021-04-26 10:18] LABS: CREATININE 0.7 mg/dL (0.6-1.3); MAGNESIUM 2.1 mg/dL (1.8-2.4)
[2021-04-26] MEDS: FOLIC ACID 1 MG TABLET PO SCH (11:05)
[2021-04-26] MEDS: THIAMINE HCL 100 MG TABLET PO SCH (11:05)
[2021-04-26] MEDS: INSULIN REGULAR, HUMAN 100 UNIT/ML 3 ML VIAL SQ PRN ×3 (11:35→21:26)
[2021-04-26] MEDS: CEFTRIAXONE 1 G in IV D5W 50 ML IV SCH (14:13)
--- NOTE | 2021-04-26 15:09 | NUR ---
RN NOTE REPORT GIVEN TO MINA VILA FOR MINA
--- NOTE | 2021-04-26 15:10 | NUR ---
RN NOTE PATIENT BROUGHT TO UNIT AND PLACED IN ROOM 117-1 IN STABLE CONDITION.
--- NOTE | 2021-04-26 18:52 | NUR ---
RN CLOSING NOTE PATIENT RESTING IN BED A/O X 4, ON ROOM AIR SAT 96-99%. NO CURRENT COMPLAINS OF SOB OR PAIN. HAS IV ACCES ON RAC 20G, LAC 20G AND ABBIE MIDLINE. ALL INTACT WITH NO SIGNS OF INFILTRATION. ABBIE MIDLINE CURRENTLY RUNNING KCL D5 1/2 NS AT 100ML/HR. SAFETY MEASURES IN PLACE BED IN THE LOWEST POSITION, 2 SIDE RAILS UP, SEMI FOWLERS POSITION AND BED LOCKED. CALL LIGHT WITHIN REACH. WILL ENDORSE TO NIGHT NURSE FOR MINA.
--- NOTE | 2021-04-26 19:52 | NUR ---
RN OPENING NOTES: RECEIVED PATIENT IN BED SLEEPING, BUT EASILY AROUSABLE, A/O X 4 AND VERBALLY RESPONSIVE. ON ROOM AIR AND PT TOLERATED WELL. IV ACCES ON RAC #20G, LAC #20G AND ABBIE MIDLINE. ALL INTACT AND PATENT. NO S/S OF INFILTRATIONS. RUNNING KCL D5 1/2 NS AT 100ML/HR. NO C/O PAIN OR DISCOMFORT. NO ACUTE DISTRESS. SAAVEDRA CATHETER INTACT AND PATENT WITH YELLOWISH URINE. NO HEMATURIA NOTED. ALL SAFETY MEASURES IN PLACE. BED IN THE LOWEST POSITION AND LOCKED. 2 SIDE RAILS UP, PLACE CALL LIGHT WITHIN REACH. WILL CONTINUE TO MONITOR.
[2021-04-26] MEDS: MIRTAZAPINE 15 MG TABLET PO SCH (21:21)
[2021-04-26] MEDS: INSULIN GLARGINE, 100 UNIT/ML CARTRIDGE SQ SCH (21:24)
--- NOTE | 2021-04-26 21:27 | NUR ---
RN NOTES: PT'S BLOOD SUGAR 248, 4 UNITS OF REGULAR INSULIN AND 10 UNITS OF LONG ACTING LANTUS GIVEN PER ORDER. NO S/S OF HYPER/HYPOGLYCEMIA. WILL CONTINUE TO MONITOR
[2021-04-27] MEDS: Potassium Chloride 20 MEQ in IV D5/0.45 NACL 1,000 ML IV PRN ×2 (03:31→16:11)
[2021-04-27] MEDS: ACETAMINOPHEN 325 MG TABLET PO PRN ×3 (03:37→17:02)
--- NOTE | 2021-04-27 03:39 | NUR ---
RN NOTES: PT C/O MILD BACK PAIN 06/16. TYLENOL 325 MG 2 TABS GIVEN PRN ORDER. NO ACUTE DISTRESS NOTED. WILL CONTINUE TO MONITOR
[2021-04-27 04:00] VITALS: BP 125/77
--- NOTE | 2021-04-27 06:32 | NUR ---
RN CLOSING NOTES: PATIENT IN BED SLEEPING, BUT EASILY AROUSABLE, A/O X 4 AND VERBALLY RESPONSIVE. ON ROOM AIR, O2 SAT 99% AND PT TOLERATED WELL. IV ACCES ON RAC #20G, LAC #20G AND ABBIE MIDLINE. ALL INTACT AND PATENT. NO S/S OF INFILTRATIONS. RUNNING KCL D5 1/2 NS AT 100ML/HR. NO C/O PAIN OR DISCOMFORT AT THIS MOMENT. NO ACUTE DISTRESS. SAAVEDRA CATHETER INTACT AND PATENT WITH YELLOWISH URINE. NO HEMATURIA, NO DYSURIA, ALL SAFETY MEASURES IN PLACE. BED IN THE LOWEST POSITION AND LOCKED. 2 SIDE RAILS UP, PLACE CALL LIGHT WITHIN REACH. WILL ENDORSE TO MORNING SHIFT NURSE.
--- NOTE | 2021-04-27 07:43 | NUR ---
RN OPENING NOTES: RECEIVED PATIENT IN BED A/O X 4 AND VERBALLY RESPONSIVE. ON ROOM AIR TOLERATING WELL. BREATHING EVEN AND UNLABORED, IV ACCES ON RAC #20G, LAC #20G AND ABBIE MIDLINE. ALL INTACT AND PATENT. NO S/S OF INFILTRATIONS. SAAVEDRA CATHETER BELOW THE PT, INTACT AND PATENT WITH YELLOWISH URINE. ALL SAFETY MEASURES IN PLACE. BED IN LOWEST POSITION AND LOCKED. 2 SIDE RAILS UP, CALL LIGHT WITHIN REACH. WILL CONTINUE TO MONITOR.
[2021-04-27 08:00] VITALS: BP 118/71
[2021-04-27] MEDS: FOLIC ACID 1 MG TABLET PO SCH (08:07)
[2021-04-27] MEDS: MULTIVITAMINS,THERAGRAN 1 UDTAB TABLET PO SCH (08:07)
[2021-04-27] MEDS: THIAMINE HCL 100 MG TABLET PO SCH (08:07)
[2021-04-27] MEDS: GLUCERNA SHAKE 237 ML CAN PO SCH ×2 (08:08→17:03)
[2021-04-27] MEDS: BLOOD SUGAR DIAGNOSTIC 1 EACH STRIP IN SCH ×4 (08:11→22:12)
[2021-04-27 09:24] LABS: BASOPHILS % (AUTO) 0.5 % (0.0-2.0); EOSINOPHILS % (AUTO) 1.1 % (0.0-6.0)
[2021-04-27] MEDS ORDERED: LOPERAMIDE HCL (2 MG CAP) 2 MG CAPSULE PO PRN (09:30)
[2021-04-27 09:53] LABS: CALCIUM, SERUM 6.6 mg/dL (8.5-10.1); CREATININE 0.4 mg/dL (0.6-1.3); POTASSIUM 4.1 mmol/L (3.5-5.1)
[2021-04-27] MEDS: INSULIN REGULAR, HUMAN 100 UNIT/ML 3 ML VIAL SQ PRN ×3 (10:12→22:14)
[2021-04-27 10:49] LABS: HEMATOCRIT 22 % (33-45); HEMOGLOBIN 7.4 g/dL (11.5-14.8); LYMPHOCYTES # (AUTO) 0.9 K/uL (0.8-4.8); LYMPHOCYTES % (AUTO) 20.8 % (20.0-44.0); MEAN CORPUSCULAR HGB CONC 34 g/dl (31.0-36.0); MEAN CORPUSCULAR VOLUME 106 fL (82-100); MONOCYTES # (AUTO) 0.2 K/uL (0.1-1.30); MONOCYTES % (AUTO) 3.6 % (2.0-12.0); NEUTROPHILS # (AUTO) 3.2 K/uL (1.8-8.9); PLATELET COUNT (AUTO) 149 K/uL (150-450); RED BLOOD CELL COUNT(AUTO) 2.08 MIL/uL (4.0-5.2); WHITE BLOOD COUNT (AUTO) 4.3 K/uL (4.3-11.0)
[2021-04-27] MEDS: MAG HYDROX/AL HYDROX/SIMETH 30 ML UDC PO PRN (11:29)
[2021-04-27] MEDS: CEFTRIAXONE 1 G in IV D5W 50 ML IV SCH (13:21)
[2021-04-27 16:00] VITALS: BP 100/75
--- NOTE | 2021-04-27 18:37 | NUR ---
rn note temperature 102.2 bp 87/54 doctor notified order a bolus ns 1000 if pt does not improved transfer to icu, Tylenol also given
[2021-04-27] MEDS ORDERED: IV NS 0.9% 1,000 ML IV ONE (19:00)
--- NOTE | 2021-04-27 19:10 | NUR ---
RN OPENING NOTES RECEIVED PATIENT IN BED, AWAKE, ALERT AND VERBALLY RESPONSIVE, NO SOB NOTED, NOT IN DISTRESS, A/O X 4, PT ON ROOM AIR AND SATTING AT 98% . PATIENT NOTED WITH ABBIE MID LINE AND RAC G#20 IV LINE, PATENT INTACT AND FLUSHED WITH NORMAL SALINE, RUNNING WITH POTASSIUN 20MEQ 1000 ML @ 100CC/HR AND NS 1000 ML IV BOLUS. ALL SAFETY PRECAUTION IMPLEMENTED. BED IS AT LOWEST POSITION AND LOCKED. BED ALARM ARMED. CALL LIGHT IS WITHIN REACH. WILL CONTINUE TO MONITOR
[2021-04-27] MEDS: ONDANSETRON HCL/PF 4 MG/2 ML VIAL IVP PRN (19:20)
--- NOTE | 2021-04-27 19:20 | NUR ---
RN NOTES PATIENT C/O OF NAUSEA, ZOFRAN 4MG IV GIVEN PER MD'S ORDER.
--- NOTE | 2021-04-27 19:24 | NUR ---
RN CLOSING NOTES: PATIENT IN BED AWAKE A/O X 4 AND VERBALLY RESPONSIVE. ON ROOM AIR, O2 SAT 99% TOLERATING WELL. IV ACCES ON RAC #20G, ABBIE MIDLINE INTACT AND PATENT. NO S/S OF INFILTRATIONS. RUNNING KCL D5 1/2 NS AT 100ML/HR. RUNNING ALSO NS 1000ML BOLUS FOR LOW BP, NO ACUTE DISTRESS. SAAVEDRA CATHETER INTACT AND PATENT WITH YELLOWISH URINE. DOCTOR NOTIFIED ABOUT HIGH TEMPERATURE AND LOW BP, POSSIBLE TRANSFERRED TO ICU IF PB DOES NOT IMPROVE, ALL SAFETY MEASURES IN PLACE. BED IN THE LOWEST POSITION AND LOCKED. 2 SIDE RAILS UP, PLACE CALL LIGHT WITHIN REACH. WILL ENDORSE TO PROJECT MANAGER [employer] PRO[employer] DIRECTOR NURSE.
[2021-04-27 20:00] VITALS: BP 95/63
[2021-04-27] MEDS: MIRTAZAPINE 15 MG TABLET PO SCH (22:10)
[2021-04-27] MEDS: INSULIN GLARGINE, 100 UNIT/ML CARTRIDGE SQ SCH (22:14)
[2021-04-28] VITALS: BP 109/64
[2021-04-28 04:00] VITALS: BP 96/64
[2021-04-28] MEDS: Potassium Chloride 20 MEQ in IV D5/0.45 NACL 1,000 ML IV PRN (04:17)
[2021-04-28] MEDS: ACETAMINOPHEN 325 MG TABLET PO PRN ×2 (05:19→10:08)
--- NOTE | 2021-04-28 05:23 | NUR ---
RN NOTES PATIENT C/O OF BACK PAIN, ACETAMINOPHEN 325MG 2 TABS GIVEN PER MD'S ORDER.
--- NOTE | 2021-04-28 06:51 | NUR ---
RN CLOSING NOTES REMAIN STABLE THROUGH OUT THE SHIFT, NO SOB NOTED, NOT IN DISTRESS, A/O X 4, PT ON ROOM AIR AND SATING AT 98% . PATIENT NOTED WITH ABBIE MID LINE AND RAC G#20 IV LINE, PATENT INTACT AND FLUSHED WITH NORMAL SALINE, RUNNING WITH POTASSIUN 20MEQ 1000 ML @ 100CC/HR. NO EPISODE OF HYPOTENSION. ALL DUE MEDS GIVEN ORDERED. ALL SAFETY PRECAUTION IMPLEMENTED. BED IS AT LOWEST POSITION AND LOCKED. BED ALARM ARMED. CALL LIGHT IS WITHIN REACH. WILL CONTINUE TO MONITOR
--- NOTE | 2021-04-28 07:48 | NUR ---
RN OPENING NOTE PATIENT AWAKE IN BED RESTING, A/O X4. NO S/S OF PAIN NOTED AT THIS TIME. ON ROOM AIR, NO DISTRESS OR SHORTNESS OF BREATH NOTED. IV ACCESS RAC #20G AND ABBIE MIDLINE INTACT, PATENT AND FLUSHING WELL. PATIENT HAVE A SAAVEDRA CATHETER, IN PLACE AND DRAINING WELL. FALL AND SAFETY MEASURES IN PLACE, BED ALARM ON, BED IN LOW AND LOCK POSITION, CALL LIGHT AND TABLE WITHIN EASY REACH, SIDE RAILS UP X2. WILL CONTINUE TO MONITOR.
[2021-04-28 08:00] VITALS: BP 91/65
[2021-04-28] MEDS: BLOOD SUGAR DIAGNOSTIC 1 EACH STRIP IN SCH ×2 (10:07→12:43)
[2021-04-28] MEDS: THIAMINE HCL 100 MG TABLET PO SCH (10:08)
[2021-04-28] MEDS: MULTIVITAMINS,THERAGRAN 1 UDTAB TABLET PO SCH (10:08)
[2021-04-28] MEDS: FOLIC ACID 1 MG TABLET PO SCH (10:08)
[2021-04-28] MEDS: GLUCERNA SHAKE 237 ML CAN PO SCH (10:10)
[2021-04-28] MEDS: INSULIN REGULAR, HUMAN 100 UNIT/ML 3 ML VIAL SQ PRN (10:12)
[2021-04-28] MEDS: MAG HYDROX/AL HYDROX/SIMETH 30 ML UDC PO PRN (10:21)
[2021-04-28] MEDS ORDERED: Insulin Glargine,Hum SQ (10:36)
[2021-04-28] MEDS ORDERED: Thiamine HCL PO (10:36)
[2021-04-28] MEDS ORDERED: INSU100V7 SQ (10:36)
[2021-04-28] MEDS ORDERED: MECO10005 PO (10:36)
[2021-04-28] MEDS ORDERED: Folic Acid PO (10:36)
[2021-04-28] MEDS ORDERED: CEPH250C PO (10:36)
[2021-04-28] MEDS ORDERED: LOPE2CAP40 PO (10:36)
[2021-04-28 12:00] VITALS: BP 105/71
[2021-04-28] MEDS: CEFTRIAXONE 1 G in IV D5W 50 ML IV SCH (14:21)
--- NOTE | 2021-04-28 17:00 | NUR ---
DRINK WAITER NOTE PATIENT DISCHARGE IN STABLE MEDICAL CONDITION. A/O X4. V/S TAKEN, STABLE AND RECORDED. NO IV ACCESS. SKIN ASSESSMENT DONE AND PICTURES TAKEN. NAME ARM BAND REMOVED. ALL BELONGINGS CHECKED AND SIGNED. HEALTH TEACHING AND DISCHARGE INSTRUCTIONS GIVEN AND VERBALIZED UNDERSTANDING. PATIENT LEFT UNIT VIA WHEELCHAIR WITH NO SIGNS OF DISTRESS, ACCOMPANIED BY RECORDING STUDIO INTERNSHIP TO THE LOBBY. PATIENT WENT HOME WITH A FRIEND. CHARGE NURSE AWARE OF DISCHARGED.
== END 2021-04-28 16:55 | disposition home or self-care (01) | DRG 420 ==
LOC: ER 19:04 → TRANSITION 21:47 → ICU 04-25 20:13 → MEDSG1 04-26 15:22 → TELE1 04-27 18:59
PROVIDERS: ADMIT Family Medicine; ATTEND Internal Medicine
PROC: 05HB33Z Insertion of Infusion Device into Right Basilic Vein, Percutaneous Approach (ICD-10-PCS; principal; 2021-04-25)
DX: E11.10 Type 2 diabetes mellitus with ketoacidosis without coma (principal); E43 Unspecified severe protein-calorie malnutrition; E72.20 Disorder of urea cycle metabolism, unspecified; R64 Cachexia; D52.8 Other folate deficiency anemias; E83.39 Other disorders of phosphorus metabolism; E88.09 Other disorders of plasma-protein metabolism, not elsewhere classified; E83.41 Hypermagnesemia; I95.9 Hypotension, unspecified; N39.0 Urinary tract infection, site not specified; E87.6 Hypokalemia; Z79.4 Long term (current) use of insulin; Y90.4 Blood alcohol level of 80-99 mg/100 ml; Z68.1 Body mass index [BMI] 19.9 or less, adult; E11.43 Type 2 diabetes mellitus with diabetic autonomic (poly)neuropathy; K31.84 Gastroparesis; G62.9 Polyneuropathy, unspecified; Z82.49 Family history of ischemic heart disease and other diseases of the circulatory system; F32.A Depression, unspecified; Z79.84 Long term (current) use of oral hypoglycemic drugs; F10.129 Alcohol abuse with intoxication, unspecified
CPT/HCPCS: 36415; 36600; 71045-TC; 80048-TC; 80061-TC; 80076-TC; 81001; 82140-TC; 82962-TC; 83690-TC; 83735-TC; 84100-TC; 84443-TC; 84484-TC; 85025-TC; 85730-TC; 87081-TC; 87086-TC; 87186-TC; C9113; C9803; G0378; G0480; J0696; J1815; J2060; J2405; J3411; J3475; J3480; J3490; J7030; J7040; J7042; J7050; J7060; U0003